=== PATIENT | male | born 1985 | race Two or more races ===

== ENCOUNTER 2020-01-23 17:11 | Inpatient (IN) | payer OTHER ==
[~2020-01-23] VITALS: Ht 172.7 cm; Wt 70.3 kg
--- NOTE | 2020-01-23 17:12 | NUR ---
Dr Higginbotham at the bedside for MSE.
[2020-01-23] MEDS ORDERED: FOLIC ACID/VITAMIN B COMP W-C TABLET PO STA (17:18)
[2020-01-23] MEDS ORDERED: ESCI10TA PO (17:27)
--- NOTE | 2020-01-23 17:27 | NUR ---
Pt out of ER for CT.
[2020-01-23] MEDS ORDERED: CHLORDIAZEPOXIDE HCL 25 MG CAPSULE PO ONE (17:30)
[2020-01-23] MEDS ORDERED: ONDANSETRON 4 MG/2 ML VIAL IV ONE ×2 (17:30→18:15)
[2020-01-23] MEDS ORDERED: THIAMINE HCL 100 MG TABLET PO ONE (17:30)
[2020-01-23] MEDS ORDERED: LORAZEPAM 2 MG/1 ML VIAL IV ONE ×2 (17:30→18:00)
[2020-01-23] MEDS ORDERED: IV NORMAL SALINE 1000 ML BAG IV ONE (17:30)
[2020-01-23 17:41] LABS: BASOPHILS # (AUTO) 0.1 K/uL (0.0-8.0); HEMOGLOBIN 16.6 g/dL (12.5-16.3); LYMPHOCYTES # (AUTO) 0.9 K/uL (20.0-40.0); LYMPHOCYTES % (AUTO) 13.2 % (20.5-51.5); MEAN CORPUSCULAR HEMOGLOBIN 32.7 uug (23.8-33.4); MEAN CORPUSCULAR HGB CONC 34 g/dL (32.5-36.3); MEAN CORPUSCULAR VOLUME 96.9 fL (73.0-96.2); MONOCYTES # (AUTO) 0.8 K/uL (2.0-10.0); MONOCYTES % (AUTO) 11.6 % (0.0-11.0); NEUTROPHILS % (AUTO) 74.2 % (38.5-71.5); PLATELET COUNT (AUTO) 195 K/uL (152-348); RED BLOOD CELL COUNT(AUTO) 5.06 MIL/uL (4.06-5.63); WHITE BLOOD COUNT (AUTO) 6.7 K/uL (3.6-10.2)
--- NOTE | 2020-01-23 17:43 | NUR ---
Pt back from CT, resting in bed.
[2020-01-23 17:45] LABS: CARBON DIOXIDE 21 mmol/L (21-32); CHLORIDE 92 mmol/L (98-107); CREATININE 1.3 mg/dL (0.6-1.3); GLUCOSE 229 mg/dL (74-106); UREA NITROGEN, BLOOD 5 mg/dL (7-18)
[2020-01-23] MEDS ORDERED: CEFTRIAXONE 2 G in IV DEXTROSE 5% 100 ML IV ONE (17:45)
[2020-01-23] MEDS ORDERED: PANTOPRAZOLE SODIUM IV 80 MG in IV DEXTROSE 5% 100 ML IV ONE (17:45)
[2020-01-23 17:46] LABS: ETHANOL 26 MG/DL (0-0)
[2020-01-23] MEDS ORDERED: LORAZEPAM 2 MG/1 ML VIAL ONE (17:46)
[2020-01-23] MEDS ORDERED: ONDANSETRON 4 MG/2 ML VIAL ONE (17:46)
[2020-01-23] MEDS ORDERED: CHLORDIAZEPOXIDE HCL 25 MG CAPSULE ONE (17:47)
[2020-01-23] MEDS ORDERED: THIAMINE HCL 100 MG TABLET ONE (17:48)
[2020-01-23 17:50] LABS: POTASSIUM 2.7 mmol/L (3.5-5.1)
[2020-01-23 17:53] LABS: ALANINE AMINOTRANSFERASE 331 U/L (16-63); ALKALINE PHOSPHATASE 141 U/L (50-136); ASPARTATE AMINOTRANSFERASE 398 U/L (15-37); BILIRUBIN,DIRECT 0.5 mg/dL (0.0-0.2); CREATINE KINASE, TOTAL 256 U/L (39-308); TOTAL PROTEIN, SERUM 8.8 g/dL (6.4-8.2)
[2020-01-23 17:54] LABS: ACETAMINOPHEN < 2.0 ug/mL (10-30)
[2020-01-23 17:56] LABS: LACTATE DEHYDROGENASE 424 U/L (85-227); LIPASE 3358 U/L (73-393)
[2020-01-23] MEDS ORDERED: CEFTRIAXONE 1 G VIAL ONE (18:00)
[2020-01-23] MEDS ORDERED: POTASSIUM CHLORIDE 20 MEQ TAB.PRT.SR PO ONE (18:00)
[2020-01-23] MEDS ORDERED: MAGNESIUM SULFATE/D5W 100 ML IV SCH (18:00)
[2020-01-23] MEDS ORDERED: POTASSIUM CHLORIDE 20 MEQ TAB.PRT.SR ONE (18:08)
[2020-01-23] MEDS ORDERED: MAGNESIUM SULFATE/D5W 100 ML ONE (18:08)
[2020-01-23] MEDS ORDERED: MORPHINE SULFATE 4 MG/1 ML DISP.SYRIN IV ONE (18:15)
--- NOTE | 2020-01-23 18:39 | NUR ---
ER spoke to admitting MD, DR Ortiz, for TELE admit.
--- NOTE | 2020-01-23 19:05 | NUR ---
ASSUMED CARE OF PATIENT FROIM DAY SHIFT SHERINE RICE.
[2020-01-23] MEDS ORDERED: ONDANSETRON 4 MG/2 ML VIAL IV PRN (20:00)
[2020-01-23] MEDS ORDERED: ACETAMINOPHEN 650 MG SUPP.RECT RC PRN (20:00)
[2020-01-23] MEDS ORDERED: LORAZEPAM 2 MG/1 ML VIAL IV PRN (20:00)
[2020-01-23] MEDS ORDERED: MORPHINE SULFATE 2 MG/1 ML DISP.SYRIN IV PRN (20:00)
--- NOTE | 2020-01-23 20:48 | NUR ---
Pt. admitted to Telemetry, under care of Dr. Ortiz. Belongs List completed. Report given to trust accounts supervisorSHERINE Lozada.
--- NOTE | 2020-01-23 20:55 | NUR ---
patient received. a/o x3. no signs of acute distress. v/s stable. cindy HUMMEL sitter at bedside for safety. will continue to monitor. Addendum: 01/24/20 at 0013 by EUSEBIA SANCHES RN a/o x2.
[2020-01-23 20:57] VITALS: BP 135/94
[2020-01-23] MEDS: THIAMINE HCL INJ 100 MG in IV DEXTROSE 5% 50 ML IV SCH (21:04)
[2020-01-23] MEDS: POTASSIUM CHLORIDE 20 MEQ in IV D5 1/2 NS 1000 ML 1,000 ML IV PRN (21:23)
[2020-01-23] MEDS: FOLIC ACID 1 MG in IV DEXTROSE 5% 50 ML IV SCH (21:41)
[2020-01-24 00:04] VITALS: BP 138/96
--- NOTE | 2020-01-24 04:26 | NUR ---
patient woke from sleep. resting comfortably and watching TV. spoke with patient he is now a/o x3. no s/s of acute distress. v/s stable. No SI/HI at this time. no SOB. Sinus Tach on tele monitor. IV intact and patent. NPO status remain. will continue to monitor.
[2020-01-24 05:51] LABS: BASOPHILS % (AUTO) 0.4 % (0.0-2.0); EOSINOPHILS % (AUTO) 0.1 % (0.0-7.0); LYMPHOCYTES # (AUTO) 0.3 K/uL (20.0-40.0); LYMPHOCYTES % (AUTO) 4.9 % (20.5-51.5); MEAN CORPUSCULAR HGB CONC 34 g/dL (32.5-36.3); MEAN CORPUSCULAR VOLUME 95.9 fL (73.0-96.2); MONOCYTES # (AUTO) 0.5 K/uL (2.0-10.0); MONOCYTES % (AUTO) 8.9 % (0.0-11.0); NEUTROPHILS # (AUTO) 5.2 K/uL (1.8-8.9); NEUTROPHILS % (AUTO) 85.7 % (38.5-71.5); RED BLOOD CELL COUNT(AUTO) 4.31 MIL/uL (4.06-5.63); WHITE BLOOD COUNT (AUTO) 6.1 K/uL (3.6-10.2)
[2020-01-24 06:14] LABS: POTASSIUM 3.2 mmol/L (3.5-5.1)
[2020-01-24] MEDS: POTASSIUM CHLORIDE 20 MEQ in IV D5 1/2 NS 1000 ML 1,000 ML IV PRN ×2 (06:16→17:28)
[2020-01-24 06:45] LABS: MAGNESIUM 2.2 mg/dL (1.8-2.4); PHOSPHOROUS 3.8 mg/dL (2.5-4.9)
[2020-01-24 06:50] LABS: HEMATOCRIT 41.3 % (36.7-47.1); HEMOGLOBIN 14.2 g/dL (12.5-16.3)
[2020-01-24 06:51] LABS: PLATELET COUNT (AUTO) 131 K/uL (152-348)
--- NOTE | 2020-01-24 07:30 | NUR ---
Received pt in bed asleep but arousable to name and touch. Pt lethargic but able to answer questions properly and obey commands. On RA with no complaints of SOB and distress at this time. Pt NPO except meds, verbalized understanding. IV on right AC 18g infusing D5 1/2NS 20 mEq LCl @ 100cc. Bed locked in lowest position with siderails 2x up. Cellphone and call light within reach. Will monitor for signs of ETOH withdrawal.
[2020-01-24] MEDS: PANTOPRAZOLE SODIUM 40 MG VIAL IV SCH (09:46)
[2020-01-24] MEDS: MULTIVITAMINS,THERAPEUTIC TABLET PO SCH (11:57)
[2020-01-24] MEDS: CHLORDIAZEPOXIDE HCL 25 MG CAPSULE PO SCH ×2 (11:58→16:43)
--- NOTE | 2020-01-24 12:04 | NUR ---
Pt now awake and able to answer questions. No distress or SOB noted. No other complaints. Able to take meds whole with sips of water. Call light and cellphone within reach. Will continue to monitor.
[2020-01-24 12:23] VITALS: BP 126/88
[2020-01-24 15:35] VITALS: BP 109/73
--- NOTE | 2020-01-24 17:18 | NUR ---
Pt had a BM. Per pt stool was liquid with dark color but no abdominal pain. Pt walked to bathroom with walker and standby assistance.
--- NOTE | 2020-01-24 17:52 | NUR ---
Gave pt pudding and a few thickened orange juice to cover for low BS. Retook BS- 93.
[2020-01-24] MEDS: FOLIC ACID 1 MG in IV DEXTROSE 5% 50 ML IV SCH (20:17)
[2020-01-24 20:44] VITALS: BP 131/93
[2020-01-24] MEDS: THIAMINE HCL INJ 100 MG in IV DEXTROSE 5% 50 ML IV SCH (21:14)
[2020-01-24] MEDS: ATORVASTATIN 10 MG TABLET PO SCH (21:14)
--- NOTE | 2020-01-24 23:33 | NUR ---
awake upon initial rounds. AAOx4 OOB to the BR with supervision. BM noted this shift. Voiding well in the urinal. IVF's infusing well via right arm heplock. On front desk monitor, patient sinus rhythm NPO maintained except meds. Fall precautions maintained. Siderails up for safety.call allen within reach.
[2020-01-25 00:20] VITALS: BP 116/75
[2020-01-25 04:48] VITALS: BP 119/79
[2020-01-25] MEDS: POTASSIUM CHLORIDE 20 MEQ in IV D5 1/2 NS 1000 ML 1,000 ML IV PRN ×2 (05:02→16:29)
--- NOTE | 2020-01-25 06:34 | NUR ---
End of shift note: slept well most of the shift. aaox4 no acute distress noted. IVF's infusing well. Voiding well. No complaints presented during shift.VSS.
[2020-01-25 06:53] LABS: BASOPHILS % (AUTO) 0.7 % (0.0-2.0); EOSINOPHILS # (AUTO) 0.1 K/uL (0.0-0.7); EOSINOPHILS % (AUTO) 1.2 % (0.0-7.0); HEMATOCRIT 40.9 % (36.7-47.1); HEMOGLOBIN 14.3 g/dL (12.5-16.3); LYMPHOCYTES # (AUTO) 0.8 K/uL (20.0-40.0); LYMPHOCYTES % (AUTO) 14.5 % (20.5-51.5); MEAN CORPUSCULAR HGB CONC 35 g/dL (32.5-36.3); MEAN CORPUSCULAR VOLUME 97.3 fL (73.0-96.2); MONOCYTES # (AUTO) 0.6 K/uL (2.0-10.0); MONOCYTES % (AUTO) 10.5 % (0.0-11.0); NEUTROPHILS # (AUTO) 4.1 K/uL (1.8-8.9); NEUTROPHILS % (AUTO) 73.1 % (38.5-71.5); PLATELET COUNT (AUTO) 146 K/uL (152-348); RED BLOOD CELL COUNT(AUTO) 4.21 MIL/uL (4.06-5.63); WHITE BLOOD COUNT (AUTO) 5.6 K/uL (3.6-10.2)
--- NOTE | 2020-01-25 07:30 | NUR ---
received on bed resting well. denies discomfort. awake alert oriented. no distress noted
[2020-01-25 08:16] LABS: CREATININE 0.8 mg/dL (0.6-1.3); MAGNESIUM 2.1 mg/dL (1.8-2.4); PHOSPHOROUS 3.4 mg/dL (2.5-4.9); POTASSIUM 3.8 mmol/L (3.5-5.1)
[2020-01-25] MEDS: PANTOPRAZOLE SODIUM 40 MG VIAL IV SCH (09:05)
[2020-01-25] MEDS: MULTIVITAMINS,THERAPEUTIC TABLET PO SCH (09:05)
[2020-01-25] MEDS: CHLORDIAZEPOXIDE HCL 25 MG CAPSULE PO SCH ×2 (09:05→16:26)
[2020-01-25] MEDS: ESCITALOPRAM OXALATE 10 MG TABLET PO SCH (09:06)
--- NOTE | 2020-01-25 09:30 | NUR ---
meds given , tolerated well. aware npo except meds, verbalized understanding. aware to call nurse for brp , safety, agreed. had bm today.
[2020-01-25 11:32] VITALS: BP 124/84
--- NOTE | 2020-01-25 14:30 | NUR ---
bm x 2 as of now. comfortable, calm. npo maintained
[2020-01-25 15:33] VITALS: BP 117/70
--- NOTE | 2020-01-25 19:14 | NUR ---
x 3 bms, no dt noted. npo maintained.
[2020-01-25] MEDS ORDERED: FOLIC ACID 1 MG TABLET PO SCH (20:00)
[2020-01-25] MEDS ORDERED: THIAMINE HCL 100 MG TABLET PO SCH (20:00)
[2020-01-25 20:51] VITALS: BP 114/82
[2020-01-25] MEDS: ATORVASTATIN 10 MG TABLET PO SCH (20:55)
[2020-01-26 00:23] VITALS: BP 125/89
[2020-01-26] MEDS: POTASSIUM CHLORIDE 20 MEQ in IV D5 1/2 NS 1000 ML 1,000 ML IV PRN (03:24)
[2020-01-26 04:55] VITALS: BP 116/78
[2020-01-26 06:08] LABS: BASOPHILS % (AUTO) 1.1 % (0.0-2.0); EOSINOPHILS # (AUTO) 0.1 K/uL (0.0-0.7); EOSINOPHILS % (AUTO) 1.9 % (0.0-7.0); HEMATOCRIT 41.7 % (36.7-47.1); HEMOGLOBIN 14.4 g/dL (12.5-16.3); LYMPHOCYTES # (AUTO) 0.7 K/uL (20.0-40.0); LYMPHOCYTES % (AUTO) 20.5 % (20.5-51.5); MEAN CORPUSCULAR HEMOGLOBIN 32.8 uug (23.8-33.4); MEAN CORPUSCULAR HGB CONC 35 g/dL (32.5-36.3); MEAN CORPUSCULAR VOLUME 95.3 fL (73.0-96.2); MONOCYTES # (AUTO) 0.5 K/uL (2.0-10.0); MONOCYTES % (AUTO) 13.8 % (0.0-11.0); NEUTROPHILS # (AUTO) 2.2 K/uL (1.8-8.9); NEUTROPHILS % (AUTO) 62.7 % (38.5-71.5); PLATELET COUNT (AUTO) 152 K/uL (152-348); RED BLOOD CELL COUNT(AUTO) 4.38 MIL/uL (4.06-5.63); WHITE BLOOD COUNT (AUTO) 3.5 K/uL (3.6-10.2)
[2020-01-26 06:40] LABS: CREATININE 0.9 mg/dL (0.6-1.3); PHOSPHOROUS 3.8 mg/dL (2.5-4.9); POTASSIUM 3.4 mmol/L (3.5-5.1)
[2020-01-26] MEDS ORDERED: PANTOPRAZOLE SODIUM 40 MG TABLET.DR PO SCH (07:00)
[2020-01-26] MEDS ORDERED: POTASSIUM CHLORIDE 20 MEQ TAB.PRT.SR PO ONE (07:30)
--- NOTE | 2020-01-26 08:00 | NUR ---
Started pt on full liquid diet per hospitalist Meena's PLUG SHAPER HAND orders. Pt is in no acute distress. IV on right hand intact. IVF infusing as ordered. will monitor patient if tolerating full liquid. Pt ambulates to bathroom with good balance.
[2020-01-26] MEDS ORDERED: THIAMINE HCL 100 MG TABLET PO SCH (09:00)
[2020-01-26] MEDS: CHLORDIAZEPOXIDE HCL 25 MG CAPSULE PO SCH (09:03)
[2020-01-26] MEDS: ESCITALOPRAM OXALATE 10 MG TABLET PO SCH (09:03)
[2020-01-26] MEDS: MULTIVITAMINS,THERAPEUTIC TABLET PO SCH (09:03)
[2020-01-26] MEDS ORDERED: THIA100T13 PO (10:20)
[2020-01-26] MEDS ORDERED: LORA-259 PO (10:20)
[2020-01-26] MEDS ORDERED: Folic Acid PO (10:20)
--- NOTE | 2020-01-26 10:30 | NUR ---
Pt tolerated full liquid for breakfast notified Meena BEJARANO. Pt is to be discharge.
--- NOTE | 2020-01-26 11:30 | NUR ---
RX for ativan, folic, and thiamin given to pt. Discharge instructions given to patient to follow up with primary doctor within 1 week and to start with soft foods then advance as tolerated to regular food if no nausea and no vomiting. Pt verbalized understanding. Pt is in no acute distress. Ambulatory with good balance. IV and ID taken out per protocol. Belongings given to patient and signed form.
== END 2020-01-26 11:30 | disposition home or self-care (01) | DRG 775 ==
LOC: ER 17:15 → TELE3 20:26
PROVIDERS: ADMIT Nurse Practitioner Acute Care; ATTEND Nurse Practitioner Acute Care
DX: F10.239 Alcohol dependence with withdrawal, unspecified (principal); G92 Toxic encephalopathy; K85.20 Alcohol induced acute pancreatitis without necrosis or infection; K76.0 Fatty (change of) liver, not elsewhere classified; F41.9 Anxiety disorder, unspecified; E87.6 Hypokalemia; E78.5 Hyperlipidemia, unspecified; Y90.1 Blood alcohol level of 20-39 mg/100 ml; R74.0 Nonspecific elevation of levels of transaminase and lactic acid dehydrogenase [LDH]; R73.9 Hyperglycemia, unspecified; K76.1 Chronic passive congestion of liver; R40.2412 Glasgow coma scale score 13-15, at arrival to emergency department
CPT/HCPCS: 36415; 70030-TC; 70450; 71045; 76705; 80329; 83615; 83690; 83735; 84100; 85025; 93005; A4663; C9113; G0378; G0480; G0480-TC; J0696; J2060; J2270; J2405; J3411; J3475; J3480; J3490; J7030; J7040; J7050; J7060

== ENCOUNTER 2020-08-22 19:15 | Emergency (ER) | payer OTHER ==
[~2020-08-22] VITALS: Ht 172.7 cm; Wt 72.6 kg
[~2020-08-22 19:15] MED LIST: ESCI10TA PO; Folic Acid PO; LORA-259 PO; THIA100T13 PO
[2020-08-22] MEDS ORDERED: ESCI5TAB PO (19:31)
--- NOTE | 2020-08-22 19:40 | NUR ---
Dr Oneil at bedside for MSE.
[2020-08-22] MEDS ORDERED: ONDANSETRON 4 MG/2 ML VIAL IV ONE (19:45)
[2020-08-22] MEDS ORDERED: IV NORMAL SALINE 1000 ML BAG IV ONE (19:45)
[2020-08-22] MEDS ORDERED: ONDANSETRON 4 MG/2 ML VIAL ONE (19:52)
[2020-08-22 20:20] LABS: BASOPHILS # (AUTO) 0.1 K/uL (0.0-8.0); BASOPHILS % (AUTO) 0.7 % (0.0-2.0); EOSINOPHILS % (AUTO) 0.1 % (0.0-7.0); HEMATOCRIT 48.3 % (36.7-47.1); HEMOGLOBIN 16.4 g/dL (12.5-16.3); LYMPHOCYTES # (AUTO) 2.1 K/uL (20.0-40.0); LYMPHOCYTES % (AUTO) 30.3 % (20.5-51.5); MEAN CORPUSCULAR HEMOGLOBIN 30.7 uug (23.8-33.4); MEAN CORPUSCULAR HGB CONC 34 g/dL (32.5-36.3); MEAN CORPUSCULAR VOLUME 90.2 fL (73.0-96.2); MONOCYTES # (AUTO) 0.4 K/uL (2.0-10.0); MONOCYTES % (AUTO) 5.3 % (0.0-11.0); NEUTROPHILS # (AUTO) 4.4 K/uL (1.8-8.9); NEUTROPHILS % (AUTO) 63.6 % (38.5-71.5); PLATELET COUNT (AUTO) 239 K/uL (152-348); RED BLOOD CELL COUNT(AUTO) 5.36 MIL/uL (4.06-5.63); WHITE BLOOD COUNT (AUTO) 6.9 K/uL (3.6-10.2)
[2020-08-22 20:33] LABS: BILIRUBIN,DIRECT 0.2 mg/dL (0.0-0.2); BILIRUBIN,TOTAL 0.7 mg/dL (0.2-1.0); CREATININE 0.7 mg/dL (0.6-1.3); POTASSIUM 3.2 mmol/L (3.5-5.1); TOTAL PROTEIN, SERUM 8.3 g/dL (6.4-8.2)
[2020-08-22] MEDS ORDERED: POTASSIUM BICARBONATE/CIT AC 25 MEQ TABLET.EFF PO ONE (21:00)
[2020-08-22] MEDS ORDERED: POTASSIUM BICARBONATE/CIT AC 25 MEQ TABLET.EFF ONE (21:17)
[2020-08-22 21:53] VITALS: BP 122/82
--- NOTE | 2020-08-22 21:54 | NUR ---
Patient has been cleared for DC by . Dr Oneil spoke with patient/and significant other Maisha regarding plan of care when DC. IV removed. Catheter intact and site benign. Pressure and 4x4 gauze applied to site. No bleeding noted. RN reinforced written and verbal after care instructions and prescription. Patient verbalizes understanding of instructions. Stressed follow up with PCP or return to ER for worsening s/s. Pt is waiting for his ride to pick him up at this time.
--- NOTE | 2020-08-22 22:01 | NUR ---
Ambulated out of ED in steady gait, family member picked patient up.
== END 2020-08-22 22:02 | disposition home or self-care (01) ==
LOC: ER 19:15
DX: F10.10 Alcohol abuse, uncomplicated (principal); E86.0 Dehydration; R11.10 Vomiting, unspecified; R19.7 Diarrhea, unspecified; R00.0 Tachycardia, unspecified; F32.9 Major depressive disorder, single episode, unspecified; Z79.899 Other long term (current) drug therapy
CPT/HCPCS: 36415; 80048; 80076; 83735; 85025; 93005; 96361; 96374; 99284; J2405; A4663; J7030

== ENCOUNTER 2020-10-02 19:43 | Inpatient (IN) | payer OTHER ==
[~2020-10-02] VITALS: Ht 172.7 cm; Wt 74.0 kg
[2020-10-02] MEDS: THIAMINE HCL INJ 100 MG in IV DEXTROSE 5% 50 ML IV SCH (01:42)
[~2020-10-02 19:43] MED LIST changes: -ESCI10TA PO; +ESCI5TAB PO; -Folic Acid PO; -LORA-259 PO; -THIA100T13 PO
[2020-10-02] MEDS ORDERED: IV NORMAL SALINE 1000 ML BAG IV ONE (20:15)
[2020-10-02] MEDS ORDERED: ONDANSETRON ODT 4 MG TAB.RAPDIS ONE (20:37)
[2020-10-02] MEDS ORDERED: MORPHINE SULFATE 2 MG/1 ML DISP.SYRIN IV ONE (20:45)
[2020-10-02] MEDS ORDERED: ONDANSETRON 4 MG/2 ML VIAL IV ONE (20:45)
[2020-10-02 20:54] LABS: BASOPHILS # (AUTO) 0.1 K/uL (0.0-8.0); BASOPHILS % (AUTO) 0.2 % (0.0-2.0); EOSINOPHILS % (AUTO) 0.2 % (0.0-7.0); HEMATOCRIT 50.9 % (36.7-47.1); HEMOGLOBIN 16.7 g/dL (12.5-16.3); LYMPHOCYTES # (AUTO) 2.4 K/uL (20.0-40.0); LYMPHOCYTES % (AUTO) 11.5 % (20.5-51.5); MEAN CORPUSCULAR HEMOGLOBIN 31.1 uug (23.8-33.4); MEAN CORPUSCULAR HGB CONC 33 g/dL (32.5-36.3); MEAN CORPUSCULAR VOLUME 94.4 fL (73.0-96.2); MONOCYTES # (AUTO) 1.4 K/uL (2.0-10.0); NEUTROPHILS # (AUTO) 16.6 K/uL (1.8-8.9); NEUTROPHILS % (AUTO) 81.1 % (38.5-71.5); PLATELET COUNT (AUTO) 121 K/uL (152-348); RED BLOOD CELL COUNT(AUTO) 5.38 MIL/uL (4.06-5.63); WHITE BLOOD COUNT (AUTO) 20.5 K/uL (3.6-10.2)
[2020-10-02] MEDS ORDERED: ONDANSETRON ODT 4 MG TAB.RAPDIS SL ONE (21:00)
[2020-10-02 21:06] LABS: ALANINE AMINOTRANSFERASE 162 U/L (16-63); ALKALINE PHOSPHATASE 85 U/L (50-136); ASPARTATE AMINOTRANSFERASE 180 U/L (15-37); BILIRUBIN,DIRECT 0.2 mg/dL (0.0-0.2); BILIRUBIN,TOTAL 0.7 mg/dL (0.2-1.0); CARBON DIOXIDE 20 mmol/L (21-32); CHLORIDE 99 mmol/L (98-107); CREATININE 0.9 mg/dL (0.6-1.3); GLUCOSE 184 mg/dL (74-106); TOTAL PROTEIN, SERUM 8.2 g/dL (6.4-8.2); UREA NITROGEN, BLOOD 5 mg/dL (7-18)
[2020-10-02 21:09] LABS: POTASSIUM 2.8 mmol/L (3.5-5.1)
[2020-10-02] MEDS ORDERED: POTASSIUM CHLORIDE 20 MEQ TAB.PRT.SR PO ONE (21:30)
[2020-10-02 21:37] LABS: LIPASE > 6000 U/L (73-393)
[2020-10-02] MEDS ORDERED: FENTANYL CITRATE 100 MCG/2 ML AMPUL IV ONE (21:45)
[2020-10-02] MEDS: MAGNESIUM SULFATE/D5W 100 ML IV SCH ×2 (21:49→22:23)
[2020-10-02] MEDS ORDERED: MAGNESIUM SULFATE 1 GM/2 ML VIAL ONE (21:49)
[2020-10-02] MEDS ORDERED: FENTANYL CITRATE 100 MCG/2 ML AMPUL ONE (21:57)
[2020-10-02] MEDS ORDERED: IV LACTATED RINGERS SOLUTION 1,000 ML IV ONE (22:00)
[2020-10-02] MEDS: POTASSIUM CHLORIDE 50 ML IV SCH ×3 (22:00→23:00)
--- NOTE | 2020-10-02 22:45 | NUR ---
Patient resting in bed. Orders received. Sinus Tachy on monitor. Will monitor and assess.
[2020-10-02] MEDS ORDERED: KETAMINE HCL 500 MG/10 ML INJ IV ONE (23:00)
[2020-10-02] MEDS ORDERED: CHLORDIAZEPOXIDE HCL 25 MG CAPSULE PO ONE (23:00)
[2020-10-02 23:02] LABS: *BILIRUBIN,URIN NEGATIVE (NEGATIVE); *CLARITY,URINE CLEAR (CLEAR); *COLOR,URINE YELLOW (YELLOW); *KETONES,URINE NEGATIVE (NEGATIVE); *UROBILINOGEN,URINE 0.2 E.U./dl (NORMAL); LEUKOCYTE ESTERASE ,URINE NEGATIVE (NEGATIVE); NITRITE, URINE NEGATIVE (NEGATIVE); UGLUCOSE NEGATIVE (NEGATIVE)
[2020-10-02 23:10] LABS: *BLOOD, URINE TRACE LYSED (NEGATIVE)
[2020-10-02] MEDS ORDERED: MAGNESIUM HYDROXIDE 30 ML LIQUID UDC PO PRN (23:30)
[2020-10-02] MEDS ORDERED: Z GUARD REMEDY PASTE 57 GM TUBE TOP PRN (23:30)
[2020-10-02] MEDS ORDERED: KETOROLAC TROMETHAMINE 30 MG INJ ONE (23:50)
[2020-10-03 00:23] LABS: BACTERIA,URINE NONE SEEN /HPF (NONE SEEN); CALCIUM OXALATE CRYSTALS,UR MANY /HPF (NONE SEEN); RBC,URINE 0-3 /HPF (0-3); SQUAMOUS EPITHELIAL CELL,UR FEW /HPF (NONE SEEN); URINE AMORPHOUS PHOSPHATES FEW /HPF; WBC,URINE 0-3 /HPF (0-3)
[2020-10-03] MEDS ORDERED: ONDANSETRON 4 MG/2 ML VIAL ONE (01:41)
[2020-10-03] MEDS: HYDROCODONE/APAP 5-325MG TABLET PO PRN ×2 (01:41→05:54)
[2020-10-03] MEDS ORDERED: HYDROCODONE/APAP 5-325MG TABLET ONE ×2 (01:41→05:59)
[2020-10-03] MEDS: ONDANSETRON 4 MG/2 ML VIAL IV PRN (01:41)
[2020-10-03] MEDS: IV NS 1000 ML 1,000 ML IV PRN ×2 (01:42→04:45)
[2020-10-03] MEDS ORDERED: THIAMINE HCL 200 MG/2 ML VIAL ONE ×2 (01:42→07:57)
[2020-10-03] MEDS ORDERED: LORAZEPAM 2 MG/1 ML VIAL ONE ×4 (03:07→09:18)
[2020-10-03] MEDS: LORAZEPAM 2 MG/1 ML VIAL IV PRN (03:07)
--- NOTE | 2020-10-03 03:08 | NUR ---
Patient resting in bed. Agitated, anxious, diaphoretic -- possible effects of withdrawal -- PRN Ativan given. No temp. Will monitor and assess.
[2020-10-03] MEDS ORDERED: LORAZEPAM 2 MG/1 ML VIAL IV ONE ×4 (06:15→09:00)
--- NOTE | 2020-10-03 07:37 | NUR ---
Note klarissaone in ED - 10/03/20 at 1907 by ADAMS (Pandemic disaster charting with no appropriate staffing ratio observed in ER) :Content Administrator assumes care, patient is on & off lethargic, tachycardic fnaa=930's-160's/min, no tremors or sezures seen, moving all over the [facility] skin warm & dry, ER doctor is aware of vital signs, pending inpatient non-COVID bed & nurse@ this time.
--- NOTE | 2020-10-03 07:37 | NUR ---
(Pandemic disaster charting with no appropriate staffing ratio observed in ER) Fuel Agent assumes care: patient is lethargic, opens eyes with soft touch, minimally verbal, moves all extremities, Dr Olvera (ER doctor) is aware of patient current vital signs with orders to give IV Ativan, pending non-COVID inpatient nurse & bed@this time.
[2020-10-03] MEDS ORDERED: LORAZEPAM 2 MG/1 ML VIAL IV PRN (07:45)
[2020-10-03 10:28] LABS: BASOPHILS % (AUTO) 0.1 % (0.0-2.0); HEMATOCRIT 51.4 % (36.7-47.1); HEMOGLOBIN 16.7 g/dL (12.5-16.3); LYMPHOCYTES # (AUTO) 0.3 K/uL (20.0-40.0); LYMPHOCYTES % (AUTO) 2.5 % (20.5-51.5); MEAN CORPUSCULAR HEMOGLOBIN 31.7 uug (23.8-33.4); MEAN CORPUSCULAR HGB CONC 33 g/dL (32.5-36.3); MEAN CORPUSCULAR VOLUME 97.4 fL (73.0-96.2); NEUTROPHILS # (AUTO) 11.5 K/uL (1.8-8.9); NEUTROPHILS % (AUTO) 89.4 % (38.5-71.5); PLATELET COUNT (AUTO) 120 K/uL (152-348); RED BLOOD CELL COUNT(AUTO) 5.28 MIL/uL (4.06-5.63); WHITE BLOOD COUNT (AUTO) 12.8 K/uL (3.6-10.2)
[2020-10-03 10:36] LABS: MAGNESIUM 2.3 mg/dL (1.8-2.4); POTASSIUM 5.7 mmol/L (3.5-5.1)
--- NOTE | 2020-10-03 11:04 | NUR ---
Dr Blankenship is here & is aware of patient's vitals signs.
[2020-10-03] MEDS ORDERED: IV NS 1000 ML 1,000 ML IV SCH (11:30)
[2020-10-03] MEDS: FOLIC ACID 1 MG in IV DEXTROSE 5% 50 ML IV SCH (11:30)
[2020-10-03] MEDS ORDERED: PHARMACY TO ADD 1 AMP OF MVI DAILY TO IVF ONE BAG XX PRN (11:30)
[2020-10-03] MEDS: IV NS 1000 ML 1,000 ML IV SCH ×2 (11:31→21:45)
[2020-10-03] MEDS ORDERED: MVI ADULT 10 ML VIAL=1 AMP 10 ML in IV NS 1000 ML 1,000 ML IV SCH (11:45)
[2020-10-03] MEDS ORDERED: FOLIC ACID 5 MG/ML VIAL IV ONE (12:16)
--- NOTE | 2020-10-03 19:10 | NUR ---
No tremors or seizures seen since this morning, still tachycardic, still waiting for inpatient non-COVID bed & nurse@this time.
--- NOTE | 2020-10-03 19:30 | NUR ---
Assumed care for patient at this time, with full report received from Christine BASURTO. Pt is resting with no signs of distress. Repositioned patient in bed and vital signs obtained, documented. Pt remains tachycardic at 142. Previous records show same reading. Paged hospitalist to report findings.
--- NOTE | 2020-10-03 20:37 | NUR ---
[facility] hospitalist is aware of Sinus Tach at 140- 150's at this time. Pt is aymptomatic, and will receive Ativan PRN for withdrawals. Will notify hospitalist for any changes in rhythm.
[2020-10-03] MEDS: THIAMINE HCL INJ 100 MG in IV DEXTROSE 5% 50 ML IV SCH (23:30)
[2020-10-04] MEDS ORDERED: PYRIDOXINE HCL 100 MG/1 ML VIAL ONE (02:42)
[2020-10-04] MEDS ORDERED: LORAZEPAM 2 MG/1 ML VIAL ONE ×4 (03:23→11:59)
[2020-10-04] MEDS: LORAZEPAM 2 MG/1 ML VIAL IV PRN ×4 (03:30→17:16)
--- NOTE | 2020-10-04 04:25 | NUR ---
Called [facility], to page Dr Light for patient's continued sinus tach at 140-150's. Ativan last given at 0330. No signs of improvement. Will call back.
[2020-10-04] MEDS ORDERED: LORAZEPAM 2 MG/1 ML VIAL IV ONE (06:30)
[2020-10-04] MEDS ORDERED: ONDANSETRON 4 MG/2 ML VIAL IV ONE (06:30)
--- NOTE | 2020-10-04 06:30 | NUR ---
Dr Glover on shift, pending orders from admitting still. Dr Glover with new orders as consult for patient. Will carryout. Dr Light notified as well.
[2020-10-04] MEDS ORDERED: ONDANSETRON 4 MG/2 ML VIAL ONE ×2 (06:38→08:31)
--- NOTE | 2020-10-04 07:00 | NUR ---
All new orders noted and carried out at this time, endorsed to Sepi AM shift RN to f/up on patient's condition. Left with pt stable.
[2020-10-04 07:34] LABS: ABG BASE EXCESS -14.9 mmol/L; ABG HCO3 9.3 mmol/L; ABG PCO2 19.8 mmHg (35.0-45.0); ABG PO2 83.2 mmHg (75.0-100.0); ABG SITE LEFT RADIAL; ABG TOTAL HEMOGLOBIN 13.9 G/dL (13.5-18.0); COHb 2.2 % (0.5-1.5); MetHb 1.1 % (0.0-1.5); VENT MODE Nasal Cannula
[2020-10-04] MEDS ORDERED: IV LACTATED RINGERS SOLUTION 1,000 ML BAG IV ONE (07:45)
[2020-10-04] MEDS: ONDANSETRON 4 MG/2 ML VIAL IV PRN (08:28)
[2020-10-04 09:02] LABS: BASOPHILS % (AUTO) 0.4 % (0.0-2.0); EOSINOPHILS # (AUTO) 0.1 K/uL (0.0-0.7); EOSINOPHILS % (AUTO) 1.3 % (0.0-7.0); HEMATOCRIT 41.8 % (36.7-47.1); HEMOGLOBIN 13.7 g/dL (12.5-16.3); LYMPHOCYTES # (AUTO) 0.5 K/uL (20.0-40.0); LYMPHOCYTES % (AUTO) 5.5 % (20.5-51.5); MEAN CORPUSCULAR HEMOGLOBIN 32.4 uug (23.8-33.4); MEAN CORPUSCULAR HGB CONC 33 g/dL (32.5-36.3); MEAN CORPUSCULAR VOLUME 98.9 fL (73.0-96.2); MONOCYTES # (AUTO) 1.1 K/uL (2.0-10.0); MONOCYTES % (AUTO) 11.3 % (0.0-11.0); NEUTROPHILS # (AUTO) 7.9 K/uL (1.8-8.9); NEUTROPHILS % (AUTO) 81.5 % (38.5-71.5); PLATELET COUNT (AUTO) 86 K/uL (152-348); RED BLOOD CELL COUNT(AUTO) 4.23 MIL/uL (4.06-5.63); WHITE BLOOD COUNT (AUTO) 9.7 K/uL (3.6-10.2)
[2020-10-04 09:12] LABS: CREATININE 5.8 mg/dL (0.6-1.3)
--- NOTE | 2020-10-04 09:49 | NUR ---
TALKED TO DR. NDIAYE, HE WILL COME AND SEE THE PT.
--- NOTE | 2020-10-04 11:00 | NUR ---
DR. NDIAYE AT BEDSIDE. Addendum: 10/04/20 at [address] NDIAYE AWARE OF THE HR, LACTIC ACID, AM LABS
--- NOTE | 2020-10-04 11:07 | NUR ---
EMMETT GARCIA NP, FROM DR. TRIPP OFFICE AT BEDSIDE.
[2020-10-04 11:13] LABS: BILIRUBIN,DIRECT 1.2 mg/dL (0.0-0.2); BILIRUBIN,TOTAL 3.3 mg/dL (0.2-1.0)
[2020-10-04] MEDS: FOLIC ACID 1 MG in IV DEXTROSE 5% 50 ML IV SCH (11:30)
[2020-10-04] MEDS ORDERED: DEXTROSE 25% 10 ML DISP.SYRIN IV ONE (11:45)
[2020-10-04] MEDS ORDERED: INSULIN REGULAR, HUMAN 300 UNIT/3 ML VIAL SQ ONE (11:45)
[2020-10-04] MEDS ORDERED: FUROSEMIDE 40 MG/4 ML VIAL IV ONE ×2 (11:45→20:00)
[2020-10-04] MEDS ORDERED: SODIUM POLYSTYRENE SULFONATE 15 G/60 ML LIQUID UDC PO ONE ×2 (12:00→20:00)
[2020-10-04] MEDS ORDERED: FUROSEMIDE 40 MG/4 ML VIAL ONE ×2 (12:15→20:40)
[2020-10-04] MEDS ORDERED: SODIUM POLYSTYRENE SULFONATE 15 G/60 ML LIQUID UDC ONE ×2 (12:15→20:41)
[2020-10-04] MEDS ORDERED: INSULIN REGULAR, HUMAN 300 UNIT/3 ML VIAL ONE (12:16)
--- NOTE | 2020-10-04 12:22 | NUR ---
CALLED DR. TRIPP TO VERIFY THE INSULIN AND D25 ORDER. DR TRIPP ORDERED INSULIN 10UNITS IV AND DEXTROSE 50%, ONE AMP IV.
[2020-10-04] MEDS ORDERED: DEXTROSE 50% 50 ML DISP.SYRIN ONE (12:27)
[2020-10-04] MEDS ORDERED: INSULIN REGULAR, HUMAN 300 UNIT/3 ML VIAL IV ONE (12:45)
[2020-10-04] MEDS ORDERED: DEXTROSE 50% 50 ML DISP.SYRIN IV ONE (12:45)
[2020-10-04] MEDS: IV NS 1000 ML 1,000 ML IV SCH (13:00)
[2020-10-04] MEDS ORDERED: FOLIC ACID 5 MG/ML VIAL IV ONE (14:02)
--- NOTE | 2020-10-04 15:24 | NUR ---
CALLED PT MOTHER AND LEFT A MESSAGE FOR CONSENT FOR DIALYSIS.
[2020-10-04] MEDS ORDERED: HEPARIN SODIUM,PORCINE 5,000 UNITS/ML VIAL ONE (15:38)
--- NOTE | 2020-10-04 15:43 | NUR ---
JOHN HUBBARD, PLACED JANUARY CATH IN THE RIGHT GROIN.
--- NOTE | 2020-10-04 18:30 | NUR ---
DR. GARCIA TALKED TO DR. NDIAYE REGARDING PT HR AND THE TIMING OF DIALYSIS. NO TIME FOR DIALYSIS AT THIS POINT.
[2020-10-04 18:31] LABS: CREATININE 6.6 mg/dL (0.6-1.3); POTASSIUM 5.7 mmol/L (3.5-5.1)
--- NOTE | 2020-10-04 19:17 | NUR ---
PT REMAIED TACHY CARDIC HR 150, THE WHOLE ER STAY, PT MOVED AND OCCASIONALLY MOAN, NON-COMPREHENSIBEL.
--- NOTE | 2020-10-04 19:30 | NUR ---
Patient is sinus tachycardic on the monitor, appears restless in bed, unable to answer my questions coherently. MD NDIAYE aware. Patient is pending dialysis treatment at this time.
[2020-10-04 20:07] LABS: BAND % (MANUAL) 20 % (0-10); LYMPHOCYTES % (MANUAL) 8 % (20-40); MONOCYTES % (MANUAL) 6 % (2-10); NEUTROPHILS % (MANUAL) 66 % (42-75)
[2020-10-04 20:09] LABS: ABG BASE EXCESS -11.9 mmol/L; ABG HCO3 13.2 mmol/L; ABG PCO2 27.8 mmHg (35.0-45.0); ABG PH 7.293 (7.350-7.450); ABG PO2 109.8 mmHg (75.0-100.0); ABG SITE RIGHT RADIAL; ABG TOTAL HEMOGLOBIN 11.9 G/dL (13.5-18.0); COHb 1.7 % (0.5-1.5); MetHb 1.8 % (0.0-1.5); O2Hb 94.5 % (94.0-97.0); VENT MODE Nasal Cannula
--- NOTE | 2020-10-04 20:30 | NUR ---
Unable to administer kayexalate PO to patient. Unable to tolerate oral medication.
--- NOTE | 2020-10-04 21:38 | NUR ---
Spoke with Dr. Santo Vargas, patient needs to be in a medsurg room in order for dialysis to be performed.
--- NOTE | 2020-10-04 22:15 | NUR ---
Pt. admitted to med-surg 2nd floor, under care of Margarita MCDONOUGH NP. Belongs List completed, report given to JOHN.
--- NOTE | 2020-10-04 23:00 | NUR ---
Received pt from ER. Pt came with neil, and 4 point restraints on due to pt trying to pull out his IV, neil, and his inguinal dialysis access point. Pt was lethargic, confused, non-responsive to commands. IV access on left forearm 20G. Upon admission removed ankle restraints. Pt placed on tele monitor with sinus tachy rhythm of 126. Will continue to monitor pt restraints and follow the plan of care.
[2020-10-04] MEDS: THIAMINE HCL INJ 100 MG in IV DEXTROSE 5% 50 ML IV SCH (23:30)
[2020-10-04 23:32] LABS: BASOPHILS % (AUTO) 0.3 % (0.0-2.0); EOSINOPHILS # (AUTO) 0.1 K/uL (0.0-0.7); EOSINOPHILS % (AUTO) 0.6 % (0.0-7.0); HEMATOCRIT 35.9 % (36.7-47.1); HEMOGLOBIN 11.9 g/dL (12.5-16.3); LYMPHOCYTES # (AUTO) 0.8 K/uL (20.0-40.0); LYMPHOCYTES % (AUTO) 8.2 % (20.5-51.5); MEAN CORPUSCULAR HEMOGLOBIN 32.9 uug (23.8-33.4); MEAN CORPUSCULAR HGB CONC 33 g/dL (32.5-36.3); MEAN CORPUSCULAR VOLUME 99.2 fL (73.0-96.2); MONOCYTES # (AUTO) 0.7 K/uL (2.0-10.0); MONOCYTES % (AUTO) 6.9 % (0.0-11.0); NEUTROPHILS # (AUTO) 8.2 K/uL (1.8-8.9); PLATELET COUNT (AUTO) 102 K/uL (152-348); RED BLOOD CELL COUNT(AUTO) 3.62 MIL/uL (4.06-5.63); WHITE BLOOD COUNT (AUTO) 9.7 K/uL (3.6-10.2)
[2020-10-04] MEDS ORDERED: THIAMINE HCL 200 MG/2 ML VIAL ONE (23:36)
[2020-10-04 23:45] LABS: ALANINE AMINOTRANSFERASE 2540 U/L (16-63); ALKALINE PHOSPHATASE 83 U/L (50-136); BILIRUBIN,TOTAL 4.9 mg/dL (0.2-1.0); CARBON DIOXIDE 18 mmol/L (21-32); CHLORIDE 107 mmol/L (98-107); CREATININE 6.9 mg/dL (0.6-1.3); TOTAL PROTEIN, SERUM 6.3 g/dL (6.4-8.2)
[2020-10-05] VITALS: BP 148/95
[2020-10-05 00:13] LABS: GLUCOSE 304 mg/dL (74-106); LIPASE > 6000 U/L (73-393)
[2020-10-05 00:14] LABS: ASPARTATE AMINOTRANSFERASE > 4000 U/L (15-37)
[2020-10-05 00:21] LABS: POTASSIUM 6.3 mmol/L (3.5-5.1); UREA NITROGEN, BLOOD 85 mg/dL (7-18)
[2020-10-05 04:00] VITALS: BP 151/95
[2020-10-05 07:58] LABS: BASOPHILS # (AUTO) 0.1 K/uL (0.0-8.0); BASOPHILS % (AUTO) 0.9 % (0.0-2.0); EOSINOPHILS # (AUTO) 0.1 K/uL (0.0-0.7); EOSINOPHILS % (AUTO) 0.6 % (0.0-7.0); HEMATOCRIT 32.2 % (36.7-47.1); HEMOGLOBIN 10.9 g/dL (12.5-16.3); LYMPHOCYTES # (AUTO) 0.9 K/uL (20.0-40.0); LYMPHOCYTES % (AUTO) 9.5 % (20.5-51.5); MEAN CORPUSCULAR HEMOGLOBIN 33.7 uug (23.8-33.4); MEAN CORPUSCULAR HGB CONC 34 g/dL (32.5-36.3); MEAN CORPUSCULAR VOLUME 99.3 fL (73.0-96.2); MONOCYTES # (AUTO) 0.6 K/uL (2.0-10.0); MONOCYTES % (AUTO) 6.2 % (0.0-11.0); NEUTROPHILS # (AUTO) 7.6 K/uL (1.8-8.9); NEUTROPHILS % (AUTO) 82.8 % (38.5-71.5); PLATELET COUNT (AUTO) 104 K/uL (152-348); RED BLOOD CELL COUNT(AUTO) 3.24 MIL/uL (4.06-5.63); WHITE BLOOD COUNT (AUTO) 9.2 K/uL (3.6-10.2)
[2020-10-05 08:00] LABS: CREATININE 7.4 mg/dL (0.6-1.3); POTASSIUM 5.6 mmol/L (3.5-5.1)
[2020-10-05] MEDS: SODIUM BICARBONATE 8.4% 100 MEQ in IV D5 1/2 NS 1000 ML 1,000 ML IV PRN ×2 (08:27→20:28)
[2020-10-05 11:35] VITALS: BP 151/86
[2020-10-05] MEDS: FOLIC ACID 1 MG in IV DEXTROSE 5% 50 ML IV SCH (12:03)
[2020-10-05 15:37] LABS: NEUTROPHILS % (MANUAL) 74 % (42-75)
[2020-10-05 15:38] LABS: BAND % (MANUAL) 6 % (0-10); LYMPHOCYTES % (MANUAL) 11 % (20-40); MONOCYTES % (MANUAL) 9 % (2-10)
[2020-10-05 15:55] VITALS: BP 130/72
--- NOTE | 2020-10-05 18:00 | NUR ---
still remains confused, vs stable, all needs attended and met, safety measures in place
--- NOTE | 2020-10-05 19:24 | NUR ---
Patient had dialysis,patient confused,has restrains on.Vitals stable.
[2020-10-05 19:39] VITALS: BP 138/90
--- NOTE | 2020-10-05 20:15 | NUR ---
Received patient in bed .Confused with soft restraints on bilateral hands.On O2 inhalation at 5 LPM via NC saturating at 94%.Diamond catheter in place draining well .RT inguinal dialysis catheter intact with dressing clean and dry.Iv access in Left Forearm 20 g patent and intact with Sodium bicarbonate D5 1/2 NS running at 100 ml/Hr.Tolerated well. Continue on NPO and on tele monitor.Continue safety measures.Will continue to monitor.
[2020-10-05] MEDS: THIAMINE HCL INJ 100 MG in IV DEXTROSE 5% 50 ML IV SCH (20:47)
[2020-10-06 00:12] VITALS: BP 149/89
[2020-10-06 04:38] VITALS: BP 145/97
[2020-10-06 07:43] LABS: BASOPHILS % (AUTO) 0.4 % (0.0-2.0); EOSINOPHILS % (AUTO) 0.2 % (0.0-7.0); LYMPHOCYTES % (AUTO) 12.1 % (20.5-51.5); MEAN CORPUSCULAR HEMOGLOBIN 33.8 uug (23.8-33.4); MEAN CORPUSCULAR HGB CONC 35 g/dL (32.5-36.3); MONOCYTES # (AUTO) 0.8 K/uL (2.0-10.0); MONOCYTES % (AUTO) 10.2 % (0.0-11.0); NEUTROPHILS # (AUTO) 6.3 K/uL (1.8-8.9); NEUTROPHILS % (AUTO) 77.1 % (38.5-71.5); PLATELET COUNT (AUTO) 77 K/uL (152-348); RED BLOOD CELL COUNT(AUTO) 2.96 MIL/uL (4.06-5.63); WHITE BLOOD COUNT (AUTO) 8.2 K/uL (3.6-10.2)
[2020-10-06 07:53] LABS: POTASSIUM 4.6 mmol/L (3.5-5.1)
[2020-10-06] MEDS ORDERED: DEXTROSE 50% 50 ML DISP.SYRIN IV PRN (08:00)
--- NOTE | 2020-10-06 08:00 | NUR ---
confused, incontinent of loose stool, washed and kept clean and dry, on 5l/nc sat at 95%, right fem dialysis cath intact with dsg, soft restraints on-pulls lines. BS (lab) 458- Dr Dillard made aware with orders, safety measures in place, no distress noted.
[2020-10-06 08:06] LABS: HEPATITIS B SURFACE AB Reactive (.); HEPATITIS B SURFACE AG Negative (Negative)
[2020-10-06 08:35] VITALS: BP 144/88
[2020-10-06] MEDS ORDERED: INSULIN GLARGINE,HUM 300 UNITS/3 ML CARTRIDGE SQ SCH (08:45)
[2020-10-06] MEDS ORDERED: INSULIN REGULAR, HUMAN 300 UNIT/3 ML VIAL SQ ONE (08:45)
[2020-10-06] MEDS: INSULIN GLARGINE,HUM 300 UNITS/3 ML CARTRIDGE SQ SCH (09:04)
[2020-10-06] MEDS: SODIUM BICARBONATE 8.4% 100 MEQ in IV D5 1/2 NS 1000 ML 1,000 ML IV PRN (09:05)
[2020-10-06] MEDS: FOLIC ACID 1 MG in IV DEXTROSE 5% 50 ML IV SCH (12:19)
[2020-10-06] MEDS: BLOOD SUGAR DIAGNOSTIC 1 EACH STRIP VI SCH ×3 (12:37→23:49)
[2020-10-06 12:38] VITALS: BP 135/88
[2020-10-06] MEDS: INSULIN REGULAR, HUMAN 300 UNIT/3 ML VIAL SQ PRN ×2 (12:39→23:49)
[2020-10-06 16:18] VITALS: BP 137/92
[2020-10-06 17:06] LABS: BAND % (MANUAL) 1 % (0-10); LYMPHOCYTES % (MANUAL) 20 % (20-40); MONOCYTES % (MANUAL) 8 % (2-10); NEUTROPHILS % (MANUAL) 71 % (42-75)
--- NOTE | 2020-10-06 18:51 | NUR ---
calm and resting, had BM's this shift, repositioned for comfort, no distress, needs attended and met.
--- NOTE | 2020-10-06 19:30 | NUR ---
Received patient lying in bed. Awake but confused and disoriented. Alert to self at times. No signs or symptoms of pain or SOB. On O2 at 5LPM via NC in place. O2 sat at 94%. Sinus tachy on tele at 110/min. Soft wrist restraint in place, circulation check. IV site on left FA intact and patent. IVF infusing. Needs anticipated to. Safety measure initiated. Continue to monitor.
--- NOTE | 2020-10-06 19:35 | NUR ---
Diamond catheter intact and draining via gravity. Will monitor for further LBM.
[2020-10-06 20:00] VITALS: BP 138/89
[2020-10-06] MEDS ORDERED: ACETAMINOPHEN 650 MG SUPP.RECT RC PRN (20:15)
[2020-10-06] MEDS: SODIUM BICARBONATE 8.4% 100 MEQ in IV D5 1/2 NS 1000 ML 1,000 ML IV SCH (20:41)
[2020-10-06] MEDS: THIAMINE HCL INJ 100 MG in IV DEXTROSE 5% 50 ML IV SCH (20:42)
--- NOTE | 2020-10-06 21:10 | NUR ---
Patient with temp of 100.4 orally. Cooling measure provided. Informed VOLTAGE REGULATOR ASSEMBLER Nishant and ordered Tylenol supp. 650mg per rectal q6 hrs PRN. Also informed of several stools during the day and ordered Stool for C. Diff. All order read back and verified. Will carry out orders.
[2020-10-07] VITALS: BP 132/83
[2020-10-07] MEDS: LORAZEPAM 2 MG/1 ML VIAL IV PRN (01:46)
[2020-10-07 04:00] VITALS: BP 121/74
[2020-10-07] MEDS: BLOOD SUGAR DIAGNOSTIC 1 EACH STRIP VI SCH ×4 (05:39→23:48)
[2020-10-07] MEDS: INSULIN REGULAR, HUMAN 300 UNIT/3 ML VIAL SQ PRN ×3 (05:41→17:59)
--- NOTE | 2020-10-07 06:25 | NUR ---
No significant event the whole shift. Remains NPO. O2 at 5LPM via NC in place. No SOB noted. PRN Lorazepam 1mg IV given x1 and effective for anxiety. Wrist restraint remains in place. IVF continue infusing. ST on tele at 115/min. Needs assessed and attended to. Safety measure maintained.
[2020-10-07 06:56] LABS: BASOPHILS # (AUTO) 0.1 K/uL (0.0-8.0); BASOPHILS % (AUTO) 0.7 % (0.0-2.0); EOSINOPHILS % (AUTO) 0.4 % (0.0-7.0); HEMATOCRIT 32.2 % (36.7-47.1); HEMOGLOBIN 11.1 g/dL (12.5-16.3); LYMPHOCYTES % (AUTO) 10.5 % (20.5-51.5); MEAN CORPUSCULAR HEMOGLOBIN 33.2 uug (23.8-33.4); MEAN CORPUSCULAR HGB CONC 34 g/dL (32.5-36.3); MEAN CORPUSCULAR VOLUME 96.7 fL (73.0-96.2); MONOCYTES # (AUTO) 1.2 K/uL (2.0-10.0); MONOCYTES % (AUTO) 12.5 % (0.0-11.0); NEUTROPHILS % (AUTO) 75.9 % (38.5-71.5); PLATELET COUNT (AUTO) 92 K/uL (152-348); RED BLOOD CELL COUNT(AUTO) 3.33 MIL/uL (4.06-5.63); WHITE BLOOD COUNT (AUTO) 9.2 K/uL (3.6-10.2)
[2020-10-07 07:19] LABS: BILIRUBIN,DIRECT 4.2 mg/dL (0.0-0.2); BILIRUBIN,TOTAL 5.7 mg/dL (0.2-1.0); TOTAL PROTEIN, SERUM 5.6 g/dL (6.4-8.2)
[2020-10-07 07:32] LABS: MAGNESIUM 2.7 mg/dL (1.8-2.4); PHOSPHOROUS 6.4 mg/dL (2.5-4.9); POTASSIUM 3.7 mmol/L (3.5-5.1)
--- NOTE | 2020-10-07 07:45 | NUR ---
received pt in bed resting no signs of distress, confused to place and time, Diamond intact with kamlesh color urine, the pt is on 5L NC O2 sat is 96%, Sinus tachy 112/min Wrist restraints present, with circulation. IV on LFA is flushing well. Will continue to monitor
[2020-10-07] MEDS: ESCITALOPRAM OXALATE 10 MG TABLET PO SCH (08:32)
[2020-10-07] MEDS: SODIUM BICARBONATE 8.4% 100 MEQ in IV D5 1/2 NS 1000 ML 1,000 ML IV SCH ×2 (08:32→18:28)
[2020-10-07 09:20] LABS: CREATININE 11.3 mg/dL (0.6-1.3)
[2020-10-07 11:40] VITALS: BP 157/91
--- NOTE | 2020-10-07 12:05 | NUR ---
[facility] started pt is in bed no sign of distress
--- NOTE | 2020-10-07 12:25 | NUR ---
Ora called confirming pt has c-dif, texted dr Dillard to inform
--- NOTE | 2020-10-07 12:50 | NUR ---
Dr benoit replied with orders
--- NOTE | 2020-10-07 13:45 | NUR ---
[facility] finished 1.6L out BP 110/62 HR 112
[2020-10-07] MEDS: FOLIC ACID 1 MG in IV DEXTROSE 5% 50 ML IV SCH (14:01)
[2020-10-07 16:16] VITALS: BP 133/91
[2020-10-07] MEDS: VANCOMYCIN FOR PO/GT/NG USE PO SCH (17:36)
--- NOTE | 2020-10-07 18:54 | NUR ---
Pt is positive for cdif had many loose BMS during shift, pt had dialysis today at 1205, Diamond cath in place. bilateral soft wrist restraints. sodium bicarb running. Vanco was giving per doctors orders Remains NPO. Needs meet and attended to. Safety measures maintained.
[2020-10-07 19:24] LABS: BAND % (MANUAL) 17 % (0-10); LYMPHOCYTES % (MANUAL) 15 % (20-40); MONOCYTES % (MANUAL) 12 % (2-10); NEUTROPHILS % (MANUAL) 56 % (42-75)
--- NOTE | 2020-10-07 19:30 | NUR ---
Received patient in bed sleeping. On 5 liters of O2 via NC. Bilateral wrist restraints noted. Bilat hands cap refill <3 secs. IV line on MORIS in place, and intact. no infiltration noted infusion ongoing. Pt has F/C patent and in place, patient has scant amount of urine in neil bag. Remains NPO status. Will continue to monitor.
[2020-10-07 20:05] VITALS: BP 117/80
[2020-10-07] MEDS: INSULIN GLARGINE,HUM 300 UNITS/3 ML CARTRIDGE SQ SCH (20:58)
[2020-10-07] MEDS: THIAMINE HCL INJ 100 MG in IV DEXTROSE 5% 50 ML IV SCH (21:13)
[2020-10-08] VITALS (7 sets, daily range): BP systolic 131–145; BP diastolic 91–99
--- NOTE | 2020-10-08 | NUR ---
Vancocin PO not given drug is not available.
[2020-10-08] MEDS: SODIUM BICARBONATE 8.4% 100 MEQ in IV D5 1/2 NS 1000 ML 1,000 ML IV SCH ×2 (04:46→08:00)
[2020-10-08] MEDS: LORAZEPAM 2 MG/1 ML VIAL IV PRN ×2 (04:47→12:50)
[2020-10-08] MEDS: VANCOMYCIN FOR PO/GT/NG USE PO SCH ×5 (05:09→23:34)
[2020-10-08] MEDS: BLOOD SUGAR DIAGNOSTIC 1 EACH STRIP VI SCH ×4 (05:10→23:35)
--- NOTE | 2020-10-08 06:08 | NUR ---
Continues on O2 @ 5 LPM via NC sat 97%. IV access on MORIS with IV bicarb with D5 1/2NS @ 100 ml/hr started on 0500. The patient began to get agitated and restless at around 0445, order of Ativan 1 mg IVP given. Dose was effective. Pt had BM x4 so far this shift. Isolation precautions observed per protocol. Positioned for comfort.
--- NOTE | 2020-10-08 07:00 | NUR ---
received pt in bed resting no signs of distress, confused to place and time, Diamond intact with kamlesh color urine, the pt is 2L NC O2 sat is 96%, Sinus tachy 112/min Wrist restraints present, with circulation. IV on LFA is flushing well. Will continue to monitor
[2020-10-08 07:10] LABS: BASOPHILS # (AUTO) 0.1 K/uL (0.0-8.0); BASOPHILS % (AUTO) 0.7 % (0.0-2.0); EOSINOPHILS % (AUTO) 0.5 % (0.0-7.0); HEMATOCRIT 29.3 % (36.7-47.1); HEMOGLOBIN 10.2 g/dL (12.5-16.3); LYMPHOCYTES # (AUTO) 0.6 K/uL (20.0-40.0); LYMPHOCYTES % (AUTO) 6.9 % (20.5-51.5); MEAN CORPUSCULAR HEMOGLOBIN 33.2 uug (23.8-33.4); MEAN CORPUSCULAR HGB CONC 35 g/dL (32.5-36.3); MEAN CORPUSCULAR VOLUME 95.7 fL (73.0-96.2); MONOCYTES # (AUTO) 1.3 K/uL (2.0-10.0); MONOCYTES % (AUTO) 14.4 % (0.0-11.0); NEUTROPHILS # (AUTO) 6.9 K/uL (1.8-8.9); NEUTROPHILS % (AUTO) 77.5 % (38.5-71.5); PLATELET COUNT (AUTO) 73 K/uL (152-348); RED BLOOD CELL COUNT(AUTO) 3.06 MIL/uL (4.06-5.63); WHITE BLOOD COUNT (AUTO) 8.9 K/uL (3.6-10.2)
[2020-10-08 07:29] LABS: EOSINOPHILS % (MANUAL) 1 % (0-8); LYMPHOCYTES % (MANUAL) 7 % (20-40); MONOCYTES % (MANUAL) 14 % (2-10); NEUTROPHILS % (MANUAL) 78 % (42-75)
[2020-10-08 07:35] LABS: MAGNESIUM 2.5 mg/dL (1.8-2.4); PHOSPHOROUS 7.3 mg/dL (2.5-4.9); POTASSIUM 3.4 mmol/L (3.5-5.1)
[2020-10-08 07:41] LABS: BILIRUBIN,DIRECT 1.8 mg/dL (0.0-0.2); BILIRUBIN,TOTAL 2.9 mg/dL (0.2-1.0); TOTAL PROTEIN, SERUM 5.4 g/dL (6.4-8.2)
[2020-10-08 07:42] LABS: CREATININE 11.2 mg/dL (0.6-1.3)
[2020-10-08] MEDS: ESCITALOPRAM OXALATE 10 MG TABLET PO SCH (07:58)
[2020-10-08] MEDS: FOLIC ACID 1 MG in IV DEXTROSE 5% 50 ML IV SCH (11:06)
--- NOTE | 2020-10-08 13:03 | NUR ---
pt is very restless pulling the iv and heart monitor trying to getting out of bed reorient the pt and ativan 1mg iv given per md orders
[2020-10-08] MEDS: INSULIN REGULAR, HUMAN 300 UNIT/3 ML VIAL SQ PRN ×2 (18:30→23:37)
[2020-10-08] MEDS: THIAMINE HCL INJ 100 MG in IV DEXTROSE 5% 50 ML IV SCH (20:33)
[2020-10-08] MEDS: INSULIN GLARGINE,HUM 300 UNITS/3 ML CARTRIDGE SQ SCH (21:19)
[2020-10-09] VITALS: BP 143/94
[2020-10-09] MEDS: SODIUM BICARBONATE 8.4% 100 MEQ in IV D5 1/2 NS 1000 ML 1,000 ML IV SCH (02:22)
[2020-10-09 04:00] VITALS: BP 151/96
[2020-10-09] MEDS: VANCOMYCIN FOR PO/GT/NG USE PO SCH ×3 (05:27→17:20)
[2020-10-09] MEDS: BLOOD SUGAR DIAGNOSTIC 1 EACH STRIP VI SCH ×3 (05:30→18:02)
--- NOTE | 2020-10-09 06:30 | NUR ---
PT SLEPT INTERMITTENTLY. PRESCRIBED MEDICATION GIVEN AND PT TOLERATED IT WELL. PT STILL CONFUSED AND HAS LUCID MOMENTS. PT IN NO ACUTE DISTRESS. SAFETY AND COMFORT PROVIDED. WILL ENDORSE TO INCOMING NURSE FOR CONTINUITY OF CARE.
[2020-10-09 06:49] LABS: BASOPHILS % (AUTO) 0.3 % (0.0-2.0); EOSINOPHILS # (AUTO) 0.1 K/uL (0.0-0.7); EOSINOPHILS % (AUTO) 0.7 % (0.0-7.0); HEMATOCRIT 30.2 % (36.7-47.1); HEMOGLOBIN 10.1 g/dL (12.5-16.3); LYMPHOCYTES # (AUTO) 0.8 K/uL (20.0-40.0); LYMPHOCYTES % (AUTO) 6.7 % (20.5-51.5); MEAN CORPUSCULAR HGB CONC 33 g/dL (32.5-36.3); MEAN CORPUSCULAR VOLUME 95.8 fL (73.0-96.2); MONOCYTES # (AUTO) 1.2 K/uL (2.0-10.0); MONOCYTES % (AUTO) 10.8 % (0.0-11.0); NEUTROPHILS # (AUTO) 9.4 K/uL (1.8-8.9); NEUTROPHILS % (AUTO) 81.5 % (38.5-71.5); PLATELET COUNT (AUTO) 94 K/uL (152-348); RED BLOOD CELL COUNT(AUTO) 3.16 MIL/uL (4.06-5.63); WHITE BLOOD COUNT (AUTO) 11.5 K/uL (3.6-10.2)
[2020-10-09 07:06] LABS: MAGNESIUM 2.8 mg/dL (1.8-2.4); PHOSPHOROUS 7.7 mg/dL (2.5-4.9)
[2020-10-09 07:09] LABS: BILIRUBIN,DIRECT 1.2 mg/dL (0.0-0.2); BILIRUBIN,TOTAL 2.1 mg/dL (0.2-1.0); TOTAL PROTEIN, SERUM 5.5 g/dL (6.4-8.2)
[2020-10-09 07:23] LABS: CREATININE 13.3 mg/dL (0.6-1.3)
--- NOTE | 2020-10-09 07:45 | NUR ---
Received critical labs BUN [address] Dillard. No new orders.
--- NOTE | 2020-10-09 08:00 | NUR ---
Received PT in bed, awake AO X 4. No acute distress or SOB noted. PT is cooperative and pleasant. PT makes needs known to staff. No complain of pain noted at the time. PT in bed with safety measures, call light within reach, bed low and lock. Will continue to monitor. Addendum: 10/09/20 at 2006 by DINAH CRESPO RN Alert and Oriented to name and place. No acute distress. PLEASE SEE PREVIOUS NOTES
[2020-10-09 08:07] VITALS: BP 141/99
[2020-10-09] MEDS: ESCITALOPRAM OXALATE 10 MG TABLET PO SCH (09:32)
[2020-10-09 11:52] VITALS: BP 134/96
[2020-10-09] MEDS: FOLIC ACID 1 MG in IV DEXTROSE 5% 50 ML IV SCH (12:44)
[2020-10-09] MEDS: IV D5 1/2 NS 1000 ML 1,000 ML IV PRN (12:47)
[2020-10-09] MEDS: INSULIN REGULAR, HUMAN 300 UNIT/3 ML VIAL SQ PRN ×2 (14:03→18:02)
[2020-10-09] MEDS: POTASSIUM CHLORIDE 50 ML IV SCH ×2 (14:14→17:19)
[2020-10-09 15:59] VITALS: BP 140/92
--- NOTE | 2020-10-09 18:40 | NUR ---
Received PT in bed, awake AO X 2. No acute distress or SOB noted. PT is cooperative and pleasant. No complain of pain noted at the time. PT in bed with safety measures, call light within reach, bed low and lock. Will endorse to resource conservation specialist nurse
--- NOTE | 2020-10-09 19:00 | NUR ---
Pt in bed, awake. Denies any acute distress or pain at this time. V/S stable on 2L NC tolerating well. Diamond draining well. PIV on LFA 20 is intact with D5 1/2 NS running at 100cc. Safety measures in place. Call light within reach. Will continue with the plan of care.
[2020-10-09 19:48] VITALS: BP 131/95
[2020-10-09] MEDS ORDERED: THIAMINE HCL 200 MG/2 ML VIAL ONE (21:23)
[2020-10-09] MEDS: THIAMINE HCL INJ 100 MG in IV DEXTROSE 5% 50 ML IV SCH (21:44)
[2020-10-09] MEDS: INSULIN GLARGINE,HUM 300 UNITS/3 ML CARTRIDGE SQ SCH (21:56)
[2020-10-10 00:09] VITALS: BP 147/98
[2020-10-10] MEDS: BLOOD SUGAR DIAGNOSTIC 1 EACH STRIP VI SCH ×4 (00:51→18:03)
[2020-10-10] MEDS: VANCOMYCIN FOR PO/GT/NG USE PO SCH ×4 (01:03→18:02)
[2020-10-10] MEDS: INSULIN REGULAR, HUMAN 300 UNIT/3 ML VIAL SQ PRN ×4 (01:05→18:05)
[2020-10-10 04:40] VITALS: BP 138/94
[2020-10-10] MEDS: IV D5 1/2 NS 1000 ML 1,000 ML IV PRN ×2 (04:49→15:54)
--- NOTE | 2020-10-10 06:51 | NUR ---
Pt remained stable throughout the shift. Denies any acute distress or pain noted at this time. V/S stable on 2L NC tolerating well. NSR on tele monitor. Comfort care and needs attended. Isolation precaution maintained. Safety measures in place. Bed low and locked in position. Call light within reach. Will endorse to the oncoming nurse accordingly.
[2020-10-10 07:44] VITALS: BP 139/91
[2020-10-10] MEDS: ESCITALOPRAM OXALATE 10 MG TABLET PO SCH (08:31)
[2020-10-10] MEDS: ACETAMINOPHEN 325 MG TABLET PO PRN (08:33)
[2020-10-10 11:38] VITALS: BP 136/88
[2020-10-10] MEDS: FOLIC ACID 1 MG in IV DEXTROSE 5% 50 ML IV SCH (11:57)
--- NOTE | 2020-10-10 15:02 | NUR ---
hemodialysis given ongoing, patient tolerating well
[2020-10-10 15:46] VITALS: BP 98/57
[2020-10-10 20:00] VITALS: BP 127/80
[2020-10-10] MEDS: THIAMINE HCL INJ 100 MG in IV DEXTROSE 5% 50 ML IV SCH (21:28)
[2020-10-10] MEDS: INSULIN GLARGINE,HUM 300 UNITS/3 ML CARTRIDGE SQ SCH (21:29)
[2020-10-11] MEDS: VANCOMYCIN FOR PO/GT/NG USE PO SCH ×4 (00:24→17:29)
[2020-10-11] MEDS: BLOOD SUGAR DIAGNOSTIC 1 EACH STRIP VI SCH ×4 (00:27→17:17)
[2020-10-11] MEDS: INSULIN REGULAR, HUMAN 300 UNIT/3 ML VIAL SQ PRN ×3 (00:29→17:21)
[2020-10-11] MEDS: IV D5 1/2 NS 1000 ML 1,000 ML IV PRN ×2 (03:04→14:35)
[2020-10-11 06:20] VITALS: BP 125/76
--- NOTE | 2020-10-11 06:53 | NUR ---
Pt stable throughout the shift. Denies any acute distress or pain at this time. On 2L NC tolerating well. PIV on LFA20 is intact with D5 running at 100cc. Comfort care and needs attended. Pt remained NPO. Isolation precaution maintained. Blood glucose monitored closely and sliding scale protocol implemented. Safety measures in place Call light within reach. Will endorse to oncoming nurse accordingly.
[2020-10-11 07:14] LABS: BASOPHILS % (AUTO) 0.3 % (0.0-2.0); EOSINOPHILS # (AUTO) 0.2 K/uL (0.0-0.7); EOSINOPHILS % (AUTO) 1.3 % (0.0-7.0); HEMATOCRIT 24.1 % (36.7-47.1); HEMOGLOBIN 8.2 g/dL (12.5-16.3); LYMPHOCYTES # (AUTO) 0.5 K/uL (20.0-40.0); LYMPHOCYTES % (AUTO) 3.6 % (20.5-51.5); MEAN CORPUSCULAR HEMOGLOBIN 32.5 uug (23.8-33.4); MEAN CORPUSCULAR HGB CONC 34 g/dL (32.5-36.3); MEAN CORPUSCULAR VOLUME 95.2 fL (73.0-96.2); MONOCYTES # (AUTO) 0.9 K/uL (2.0-10.0); MONOCYTES % (AUTO) 7.1 % (0.0-11.0); NEUTROPHILS # (AUTO) 11.6 K/uL (1.8-8.9); NEUTROPHILS % (AUTO) 87.7 % (38.5-71.5); PLATELET COUNT (AUTO) 119 K/uL (152-348); RED BLOOD CELL COUNT(AUTO) 2.53 MIL/uL (4.06-5.63); WHITE BLOOD COUNT (AUTO) 13.2 K/uL (3.6-10.2)
[2020-10-11 07:21] LABS: BILIRUBIN,DIRECT 1.6 mg/dL (0.0-0.2); BILIRUBIN,TOTAL 1.9 mg/dL (0.2-1.0); MAGNESIUM 2.1 mg/dL (1.8-2.4); PHOSPHOROUS 5.2 mg/dL (2.5-4.9); POTASSIUM 2.9 mmol/L (3.5-5.1); TOTAL PROTEIN, SERUM 4.9 g/dL (6.4-8.2)
[2020-10-11] MEDS: ESCITALOPRAM OXALATE 10 MG TABLET PO SCH (07:55)
[2020-10-11 08:00] LABS: CREATININE 11.4 mg/dL (0.6-1.3)
[2020-10-11] MEDS: POTASSIUM CHLORIDE 50 ML IV SCH ×4 (09:17→13:11)
[2020-10-11] MEDS ORDERED: POTASSIUM CHLORIDE 20 MEQ TAB.PRT.SR PO ONE (11:30)
[2020-10-11 11:39] VITALS: BP 148/87
[2020-10-11] MEDS: FOLIC ACID 1 MG TABLET PO SCH (12:31)
[2020-10-11] MEDS: THIAMINE HCL 100 MG TABLET PO SCH (12:32)
[2020-10-11 16:08] VITALS: BP 141/89
[2020-10-11 16:10] LABS: *OCCULT BLOOD STOOL POSITIVE (NEGATIVE)
[2020-10-11 16:23] VITALS: BP 147/86
[2020-10-11 20:00] VITALS: BP 164/89
[2020-10-11] MEDS: INSULIN GLARGINE,HUM 300 UNITS/3 ML CARTRIDGE SQ SCH (20:51)
[2020-10-11] MEDS: LACTULOSE 20 G/30 ML LIQUID UDC PO SCH (20:52)
[2020-10-11] MEDS: ONDANSETRON 4 MG/2 ML VIAL IV PRN (22:45)
[2020-10-11] MEDS: ACETAMINOPHEN 325 MG TABLET PO PRN (22:45)
[2020-10-11] MEDS: HYDROCODONE/APAP 5-325MG TABLET PO PRN (22:45)
--- NOTE | 2020-10-11 23:12 | NUR ---
patient received in bed. aaox2. able to verbalize needs. soft wrist restraints on bilateral arms. PIV intact and patent. fever and nausea noted and tylenol and zofran administered. tolerated well. on safety precautions. will continue to monitor and assess throughout the night.
--- NOTE | 2020-10-11 23:35 | NUR ---
elevated BP noted and Laurent Jacobs DNP contacted. no new orders at this time.
[2020-10-12] MEDS: VANCOMYCIN FOR PO/GT/NG USE PO SCH ×5 (00:28→23:25)
[2020-10-12] MEDS: BLOOD SUGAR DIAGNOSTIC 1 EACH STRIP VI SCH ×5 (00:28→23:26)
[2020-10-12] MEDS: INSULIN REGULAR, HUMAN 300 UNIT/3 ML VIAL SQ PRN ×5 (00:28→23:43)
[2020-10-12] MEDS: IV D5 1/2 NS 1000 ML 1,000 ML IV PRN ×2 (02:20→12:18)
[2020-10-12 05:00] VITALS: BP 162/95
--- NOTE | 2020-10-12 06:59 | NUR ---
patient resting comfortably. BS coverage provided this morning. aaox2. all medications administered and tolerated well. safety precautions provided. bed in lowest position, side rails up x2 and bed alarm on. all needs attended to. will continue to monitor and assess until morning nurse arrives.
[2020-10-12 07:19] LABS: BASOPHILS # (AUTO) 0.1 K/uL (0.0-8.0); BASOPHILS % (AUTO) 0.4 % (0.0-2.0); EOSINOPHILS # (AUTO) 0.1 K/uL (0.0-0.7); EOSINOPHILS % (AUTO) 0.7 % (0.0-7.0); HEMATOCRIT 23.7 % (36.7-47.1); LYMPHOCYTES # (AUTO) 0.6 K/uL (20.0-40.0); LYMPHOCYTES % (AUTO) 4.2 % (20.5-51.5); MEAN CORPUSCULAR HEMOGLOBIN 32.5 uug (23.8-33.4); MEAN CORPUSCULAR HGB CONC 34 g/dL (32.5-36.3); MEAN CORPUSCULAR VOLUME 96.5 fL (73.0-96.2); MONOCYTES # (AUTO) 0.8 K/uL (2.0-10.0); MONOCYTES % (AUTO) 6.1 % (0.0-11.0); NEUTROPHILS % (AUTO) 88.6 % (38.5-71.5); PLATELET COUNT (AUTO) 172 K/uL (152-348); WHITE BLOOD COUNT (AUTO) 13.6 K/uL (3.6-10.2)
[2020-10-12 07:34] LABS: RED BLOOD CELL COUNT(AUTO) 2.45 MIL/uL (4.06-5.63)
[2020-10-12 08:06] LABS: BILIRUBIN,TOTAL 1.4 mg/dL (0.2-1.0); MAGNESIUM 2.3 mg/dL (1.8-2.4); PHOSPHOROUS 6.2 mg/dL (2.5-4.9); TOTAL PROTEIN, SERUM 5.6 g/dL (6.4-8.2)
[2020-10-12] MEDS: THIAMINE HCL 100 MG TABLET PO SCH (08:47)
[2020-10-12] MEDS: ESCITALOPRAM OXALATE 10 MG TABLET PO SCH (08:48)
[2020-10-12] MEDS: FOLIC ACID 1 MG TABLET PO SCH (08:48)
[2020-10-12] MEDS: LACTULOSE 20 G/30 ML LIQUID UDC PO SCH ×2 (08:48→21:28)
--- NOTE | 2020-10-12 09:56 | NUR ---
dialysis in progress, pt alert and oriented x2
[2020-10-12 11:29] VITALS: BP 122/67
--- NOTE | 2020-10-12 12:30 | NUR ---
hemodialysis completed 1100 ml removed by HD nurse
--- NOTE | 2020-10-12 13:00 | NUR ---
alert/oriented x3- able to comprehend well, soft wrist restraints off at this time
[2020-10-12 16:22] VITALS: BP 139/91
--- NOTE | 2020-10-12 19:10 | NUR ---
remians awake alert orientedx3, restraints off, no distress noted, all needs attended and met safety measures maintained
--- NOTE | 2020-10-12 20:00 | NUR ---
RECEIVED PT IN NO ACUTE DISTRESS.PT ALERT, AWAKE AND ORIENTEDX3. IV INTACT. SAFETY AND COMFORT PROVIDED. WILL CONTINUE TO MONITOR.
[2020-10-12 20:06] VITALS: BP 112/76
[2020-10-12] MEDS: ACETAMINOPHEN 325 MG TABLET PO PRN (21:28)
[2020-10-12] MEDS: INSULIN GLARGINE,HUM 300 UNITS/3 ML CARTRIDGE SQ SCH (22:07)
[2020-10-13] MEDS: IV D5 1/2 NS 1000 ML 1,000 ML IV PRN ×3 (02:30→23:05)
[2020-10-13 04:12] VITALS: BP 143/84
[2020-10-13] MEDS: INSULIN REGULAR, HUMAN 300 UNIT/3 ML VIAL SQ PRN ×4 (05:26→23:12)
[2020-10-13] MEDS: VANCOMYCIN FOR PO/GT/NG USE PO SCH ×4 (05:26→23:10)
[2020-10-13] MEDS: BLOOD SUGAR DIAGNOSTIC 1 EACH STRIP VI SCH ×4 (05:27→23:06)
--- NOTE | 2020-10-13 06:17 | NUR ---
PT SLEPT INTERMITTENTLY. PT ALERT. PT IN NO ACUTE DISTRESS. IV INTACT. PT VITAL SIGNS WNL. PRESCRIBED MEDICATION GIVEN AND PT TOLERATED IT WELL. PT UPSET BECAUSE OF LOOSE BOWEL MOVEMENT. SAFETY AND COMFORT PROVIDED. ALL NEEDS ARE MET. WILL ENDORSE TO INCOMING NURSE FOR CONTINUITY OF CARE.
[2020-10-13 06:51] LABS: BASOPHILS # (AUTO) 0.1 K/uL (0.0-8.0); BASOPHILS % (AUTO) 0.5 % (0.0-2.0); EOSINOPHILS # (AUTO) 0.1 K/uL (0.0-0.7); EOSINOPHILS % (AUTO) 0.8 % (0.0-7.0); HEMATOCRIT 22.9 % (36.7-47.1); HEMOGLOBIN 7.9 g/dL (12.5-16.3); LYMPHOCYTES # (AUTO) 0.9 K/uL (20.0-40.0); LYMPHOCYTES % (AUTO) 6.9 % (20.5-51.5); MEAN CORPUSCULAR HEMOGLOBIN 33.1 uug (23.8-33.4); MEAN CORPUSCULAR HGB CONC 35 g/dL (32.5-36.3); MONOCYTES # (AUTO) 0.8 K/uL (2.0-10.0); MONOCYTES % (AUTO) 5.9 % (0.0-11.0); NEUTROPHILS # (AUTO) 11.2 K/uL (1.8-8.9); NEUTROPHILS % (AUTO) 85.9 % (38.5-71.5); PLATELET COUNT (AUTO) 212 K/uL (152-348)
[2020-10-13 07:16] LABS: MAGNESIUM 2.2 mg/dL (1.8-2.4); PHOSPHOROUS 5.7 mg/dL (2.5-4.9)
[2020-10-13 07:47] LABS: RED BLOOD CELL COUNT(AUTO) 2.39 MIL/uL (4.06-5.63)
[2020-10-13 08:16] LABS: CREATININE 12.4 mg/dL (0.6-1.3)
--- NOTE | 2020-10-13 08:35 | NUR ---
PT came to see patient
[2020-10-13] MEDS: THIAMINE HCL 100 MG TABLET PO SCH (08:54)
[2020-10-13] MEDS: ESCITALOPRAM OXALATE 10 MG TABLET PO SCH (08:54)
[2020-10-13] MEDS: LACTULOSE 20 G/30 ML LIQUID UDC PO SCH ×2 (08:54→20:57)
[2020-10-13] MEDS: FOLIC ACID 1 MG TABLET PO SCH (08:55)
[2020-10-13 11:32] VITALS: BP 144/79
[2020-10-13] MEDS: PANTOPRAZOLE SODIUM 40 MG VIAL IV SCH ×2 (12:14→20:57)
--- NOTE | 2020-10-13 14:38 | NUR ---
Visual C Developer Consultation: 2:00pm: This SW met with the patient today. Reason for consultation is alcohol abuse. Patient is a 35 year old male who came to the ED on 10/02/20 for abdominal pain, alcohol pancreatitis. Patient is alert, oriented x 4, receptive to meeting with this SW. Patient lives at home ([address] [place] [address]., [address], [place] [address]) with his mother and the mother's . 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 Patient discussed feelings of loneliness that started a few months ago when he couldn't work and couldn't see his family due to some of his family members having COVID, resulting in increased drinking. Patient reports hx of drinking "on the weekends for years". Patient reported that over the last few months, patient began drinking daily, 1-2 glasses of whiskey a day. Patient also reported a history of smoking cigarettes, initially started smoking at age 15, stopped at 23, but then started again about 2 years ago. Patient reports that lately he was smoking 1/2 a cigarette a day, because it would make him too dizzy. Patient denied use of any other drugs. Patient reports diagnosis of Anxiety. Patient reported that he was taking Ativan in the past, but is currently taking Lexapro. Patient reports seeing his PCP regularly. Patient denied SI. Patient's thought process and content were clear and appropriate. Patient maintained appropriate eye contact throughout this interview. Patient's speech was clear, tone of voice was WNL. Affect and behavior were WNL. SW explored patient's needs for community resources, such as mental health services and substance abuse treatment programs, and patient declined these resources. Patient stated that "this has been a wake up call" and that he plans to start living a healthier life, exercising more, taking his dogs for walks and going bike riding. SW commended patient for identifying healthy coping skills. Patient also stated that he has a supportive girlfriend. Discharge plans discussed, and patient stated that he would be returning home after this hospitalization. No SS interventions needed at this time, however this SW informed the patient that if he changes his mind regarding the resources discussed, that this social service agency director is available to provide him with this information. Patient expressed understanding and thanked IVAN for her time and support.
[2020-10-13 16:00] VITALS: BP 148/85
--- NOTE | 2020-10-13 16:19 | NUR ---
Received PT in bed AO X 3 no acute distress or SOB. Pt is cooperative. No complaints of pain at this time, Diamond in place and intact, safety measures in place. Will continue to monitor Addendum: 10/13/20 at 1843 by ERNESTINE DOCKERY LVN Document wrong time meant for [id number]
--- NOTE | 2020-10-13 19:12 | NUR ---
End Shift Pt is in bed no signs of distress, Diamond cath was taken out. Pt is on Room air, AOx 4. Pt is able to express needs, Safety measures were taken. Pts needs were met.
[2020-10-13 20:24] VITALS: BP 143/79
[2020-10-13] MEDS: INSULIN GLARGINE,HUM 300 UNITS/3 ML CARTRIDGE SQ SCH (20:59)
--- NOTE | 2020-10-13 23:40 | NUR ---
Awake upon initial rounds.AAOx3-4 Needs attended. VSS. Compliant with meds. Incontinent of bowel and bladder. Kept clean and dry. No BM noted this shift. Will monitor patient. Fall precautions maintained. Siderails up for safety.
[2020-10-14 04:39] VITALS: BP 139/76
[2020-10-14] MEDS: VANCOMYCIN FOR PO/GT/NG USE PO SCH ×4 (05:14→23:58)
[2020-10-14] MEDS: BLOOD SUGAR DIAGNOSTIC 1 EACH STRIP VI SCH ×3 (05:25→18:38)
[2020-10-14] MEDS: INSULIN REGULAR, HUMAN 300 UNIT/3 ML VIAL SQ PRN ×3 (05:28→18:54)
--- NOTE | 2020-10-14 07:30 | NUR ---
Received pt, awake alert and oriented x4. pt on RA, no signs of distress noted. IV on the left forearm 20g, and on the right upper arm, midline 20g. bed in low and locked position, safety precautions in place, will continue to monitor.
[2020-10-14] MEDS: PANTOPRAZOLE SODIUM 40 MG VIAL IV SCH ×2 (08:56→21:19)
[2020-10-14] MEDS: ESCITALOPRAM OXALATE 10 MG TABLET PO SCH (08:56)
[2020-10-14] MEDS: THIAMINE HCL 100 MG TABLET PO SCH (08:57)
[2020-10-14] MEDS: FOLIC ACID 1 MG TABLET PO SCH (08:57)
[2020-10-14] MEDS: LACTULOSE 20 G/30 ML LIQUID UDC PO SCH ×2 (08:57→21:20)
[2020-10-14] MEDS: IV D5 1/2 NS 1000 ML 1,000 ML IV PRN (09:19)
[2020-10-14 12:00] VITALS: BP 144/78
--- NOTE | 2020-10-14 12:00 | NUR ---
Pt ended dialysis. boat canvas maker installer reported pt tolerated well. Vitals are BP 138/68, pulse 91, temp 98. 600 out. Will continue to monitor.
[2020-10-14 16:43] VITALS: BP 124/67
--- NOTE | 2020-10-14 18:39 | NUR ---
pt resting bed, awake alert and oriented x4. pt on RA, no signs of distress noted. IV on the left FA 20g and Right UA midline 20g. On a clear liquid diet. medications given as ordered. Bed in low and locked position, safety precautions in place. Will endorse to oncoming nurse.
[2020-10-14 18:55] LABS: CREATININE 10.2 mg/dL (0.6-1.3)
--- NOTE | 2020-10-14 19:00 | NUR ---
RECD PT IN BED,RESTING QUIETLY, NO DISTRESS NOTED. ALERT ,ORIENTEDX4, NO COMPLAINTS PRESENTED.
[2020-10-14 20:08] VITALS: BP 140/84
[2020-10-14 20:53] VITALS: BP 140/84
[2020-10-14] MEDS: INSULIN GLARGINE,HUM 300 UNITS/3 ML CARTRIDGE SQ SCH (21:26)
[2020-10-14] MEDS: ACIDOPHILUS/BULGARICUS CHEW TAB PO SCH (21:33)
[2020-10-15] MEDS: INSULIN REGULAR, HUMAN 300 UNIT/3 ML VIAL SQ PRN ×4 (00:05→23:21)
[2020-10-15 04:50] VITALS: BP 139/80
--- NOTE | 2020-10-15 05:59 | NUR ---
SLEPT ON AND OFF,NEEDS ATTENDED TO.ENDORSED TO AM NURSE IN APPARENTLY FAIR CONDITION.
[2020-10-15] MEDS: BLOOD SUGAR DIAGNOSTIC 1 EACH STRIP VI SCH ×5 (06:00→23:16)
[2020-10-15] MEDS: ACIDOPHILUS/BULGARICUS CHEW TAB PO SCH ×3 (06:22→21:20)
[2020-10-15] MEDS: VANCOMYCIN FOR PO/GT/NG USE PO SCH ×3 (06:22→17:18)
[2020-10-15 06:35] LABS: BASOPHILS # (AUTO) 0.1 K/uL (0.0-8.0); BASOPHILS % (AUTO) 0.8 % (0.0-2.0); EOSINOPHILS # (AUTO) 0.1 K/uL (0.0-0.7); EOSINOPHILS % (AUTO) 0.7 % (0.0-7.0); HEMATOCRIT 23.2 % (36.7-47.1); LYMPHOCYTES # (AUTO) 1.3 K/uL (20.0-40.0); LYMPHOCYTES % (AUTO) 8.3 % (20.5-51.5); MEAN CORPUSCULAR HEMOGLOBIN 32.7 uug (23.8-33.4); MEAN CORPUSCULAR HGB CONC 35 g/dL (32.5-36.3); MEAN CORPUSCULAR VOLUME 94.7 fL (73.0-96.2); MONOCYTES # (AUTO) 1.1 K/uL (2.0-10.0); NEUTROPHILS # (AUTO) 12.9 K/uL (1.8-8.9); NEUTROPHILS % (AUTO) 83.2 % (38.5-71.5); PLATELET COUNT (AUTO) 383 K/uL (152-348); WHITE BLOOD COUNT (AUTO) 15.4 K/uL (3.6-10.2)
[2020-10-15 06:46] LABS: RED BLOOD CELL COUNT(AUTO) 2.45 MIL/uL (4.06-5.63)
[2020-10-15 07:29] LABS: BILIRUBIN,TOTAL 1.1 mg/dL (0.2-1.0); PHOSPHOROUS 6.1 mg/dL (2.5-4.9); TOTAL PROTEIN, SERUM 6.6 g/dL (6.4-8.2)
[2020-10-15] MEDS: ESCITALOPRAM OXALATE 10 MG TABLET PO SCH (08:00)
[2020-10-15] MEDS: FOLIC ACID 1 MG TABLET PO SCH (08:00)
[2020-10-15] MEDS: THIAMINE HCL 100 MG TABLET PO SCH (08:00)
[2020-10-15] MEDS: LACTULOSE 20 G/30 ML LIQUID UDC PO SCH ×2 (08:00→21:00)
[2020-10-15 08:22] LABS: CREATININE 11.6 mg/dL (0.6-1.3); POTASSIUM 2.6 mmol/L (3.5-5.1)
[2020-10-15] MEDS: PANTOPRAZOLE SODIUM 40 MG VIAL IV SCH (08:27)
[2020-10-15] MEDS ORDERED: POTASSIUM CHLORIDE 20 MEQ TAB.PRT.SR PO ONE (10:00)
[2020-10-15 11:33] VITALS: BP 153/92
[2020-10-15 16:00] VITALS: BP 151/87
[2020-10-15] MEDS: PANTOPRAZOLE SODIUM 40 MG TABLET.DR PO SCH (16:37)
--- NOTE | 2020-10-15 19:46 | NUR ---
Received call from with new order CBC and BMP around 5066-1258 A.m tomorrow ,order noted and carried out.Labs department and patient made aware.
--- NOTE | 2020-10-15 20:12 | NUR ---
PAtient ALOx4.Resting in bed.On RA .Denies pain .No s/s of distress noted.Patient has 2 IV access one on Right upper arm midline patent and intact and left FA 20 g .Patient on NPO after midnight.Patient verbalized understanding.Continue safety measures .Call light with in reach.Will continue to monitor.
[2020-10-15 20:18] VITALS: BP 150/84
[2020-10-15] MEDS: INSULIN GLARGINE,HUM 300 UNITS/3 ML CARTRIDGE SQ SCH (21:19)
[2020-10-16 04:05] LABS: BASOPHILS # (AUTO) 0.1 K/uL (0.0-8.0); EOSINOPHILS # (AUTO) 0.1 K/uL (0.0-0.7); MONOCYTES # (AUTO) 1.1 K/uL (2.0-10.0)
[2020-10-16 04:06] LABS: BASOPHILS % (AUTO) 0.6 % (0.0-2.0); LYMPHOCYTES # (AUTO) 1.3 K/uL (20.0-40.0); LYMPHOCYTES % (AUTO) 8.8 % (20.5-51.5); MEAN CORPUSCULAR HEMOGLOBIN 31.6 uug (23.8-33.4); MEAN CORPUSCULAR HGB CONC 34 g/dL (32.5-36.3); MEAN CORPUSCULAR VOLUME 93.2 fL (73.0-96.2); MONOCYTES % (AUTO) 7.5 % (0.0-11.0); NEUTROPHILS # (AUTO) 11.8 K/uL (1.8-8.9); NEUTROPHILS % (AUTO) 82.1 % (38.5-71.5); PLATELET COUNT (AUTO) 382 K/uL (152-348); WHITE BLOOD COUNT (AUTO) 14.4 K/uL (3.6-10.2)
--- NOTE | 2020-10-16 04:06 | NUR ---
JOANN WORKS DRAWN, PROCEDURE TOLERATED WELL. NPO MAINTAINED, SLEPT INTERMITTENTLY.NEEDS ATTENDED TO.
[2020-10-16 04:18] VITALS: BP 141/86
[2020-10-16 04:28] LABS: POTASSIUM 2.8 mmol/L (3.5-5.1)
[2020-10-16 04:29] LABS: CREATININE 12.8 mg/dL (0.6-1.3); HEMATOCRIT 20.7 % (36.7-47.1); RED BLOOD CELL COUNT(AUTO) 2.22 MIL/uL (4.06-5.63)
[2020-10-16] MEDS: VANCOMYCIN FOR PO/GT/NG USE PO SCH ×5 (06:00→23:15)
[2020-10-16] MEDS: ACIDOPHILUS/BULGARICUS CHEW TAB PO SCH ×3 (06:00→21:39)
[2020-10-16] MEDS: BLOOD SUGAR DIAGNOSTIC 1 EACH STRIP VI SCH ×4 (06:42→20:39)
[2020-10-16] MEDS: PANTOPRAZOLE SODIUM 40 MG TABLET.DR PO SCH ×2 (07:00→16:12)
--- NOTE | 2020-10-16 07:05 | NUR ---
READY FOR PERMA CATH PLACEMENT, AM CARE SELF DONE.CONSENT DONE.LAB RESULTS COMMUNICATED TO OR STAFF.
--- NOTE | 2020-10-16 07:22 | NUR ---
PT WAS P/U VIA BED FOR OR.
[2020-10-16] MEDS ORDERED: HEPARIN/NS 500 ML ONE (07:24)
[2020-10-16] MEDS ORDERED: BUPIVACAINE 0.25% 30 ML VIAL ONE (07:24)
[2020-10-16] MEDS ORDERED: HEPARIN SODIUM,PORCINE 1,000 UNITS/ML VIAL ONE ×2 (07:24→07:35)
[2020-10-16] MEDS ORDERED: PROPOFOL 200 MG/20 ML BOTTLE ONE (07:31)
[2020-10-16] MEDS ORDERED: MIDAZOLAM HCL 10 MG/2 ML VIAL ONE (07:31)
[2020-10-16] MEDS ORDERED: LIDOCAINE-MPF 2% 5 ML VIAL IJ ONE (08:29)
[2020-10-16] MEDS: LACTULOSE 20 G/30 ML LIQUID UDC PO SCH ×2 (09:00→20:14)
[2020-10-16] MEDS: THIAMINE HCL 100 MG TABLET PO SCH (09:05)
[2020-10-16] MEDS: ESCITALOPRAM OXALATE 10 MG TABLET PO SCH (09:05)
[2020-10-16] MEDS: FOLIC ACID 1 MG TABLET PO SCH (09:06)
--- NOTE | 2020-10-16 09:07 | NUR ---
received from recovery room via bed in stable condition PermCath insertion done on his left side
[2020-10-16 12:18] VITALS: BP 149/88
--- NOTE | 2020-10-16 12:24 | NUR ---
dialysis done 1100 ml removed
[2020-10-16 16:18] VITALS: BP 146/88
[2020-10-16] MEDS: INSULIN REGULAR, HUMAN 300 UNIT/3 ML VIAL SQ PRN (17:02)
[2020-10-16] MEDS ORDERED: DEXTROSE 50% 50 ML DISP.SYRIN IV PRN (20:00)
[2020-10-16] MEDS ORDERED: POTASSIUM CHLORIDE 10 MEQ TAB.PRT.SR PO ONE (20:00)
--- NOTE | 2020-10-16 20:00 | NUR ---
RECEIVED PATIENT AWAKE IN BED. A/O X4. DENIES ANY PAIN OR DISCOMFORT AT THIS TIME. NO RESP. DISTRESS NOTED. VS WNL. MID-LINE NOTED TO RIGHT UPPER ARM, INTACT. ON ISOLATION FOR CONTACT, C-DIFF. CALL LIGHT IN REACH. ALL NEEDS ATTENDED, WILL CONTINUE TO MONITOR AND ASSESS.
[2020-10-16 20:06] VITALS: BP 143/86
[2020-10-16] MEDS: INSULIN GLARGINE,HUM 300 UNITS/3 ML CARTRIDGE SQ SCH (20:41)
[2020-10-16] MEDS: INSULIN REGULAR, HUMAN 300 UNITS/3 ML VIAL SQ PRN (20:42)
[2020-10-17 05:13] VITALS: BP 150/95
[2020-10-17] MEDS: PANTOPRAZOLE SODIUM 40 MG TABLET.DR PO SCH (06:04)
[2020-10-17] MEDS: VANCOMYCIN FOR PO/GT/NG USE PO SCH ×4 (06:04→23:28)
[2020-10-17] MEDS: ACIDOPHILUS/BULGARICUS CHEW TAB PO SCH ×3 (06:04→21:08)
[2020-10-17] MEDS: BLOOD SUGAR DIAGNOSTIC 1 EACH STRIP VI SCH ×4 (06:30→20:37)
[2020-10-17 07:34] LABS: CREATININE 9.6 mg/dL (0.6-1.3)
[2020-10-17] MEDS: INSULIN REGULAR, HUMAN 300 UNIT/3 ML VIAL SQ PRN ×2 (07:44→11:30)
[2020-10-17] MEDS: ESCITALOPRAM OXALATE 10 MG TABLET PO SCH (08:03)
[2020-10-17] MEDS: THIAMINE HCL 100 MG TABLET PO SCH (08:03)
[2020-10-17] MEDS: FOLIC ACID 1 MG TABLET PO SCH (08:03)
[2020-10-17] MEDS ORDERED: POTASSIUM CHLORIDE 20 MEQ TAB.PRT.SR PO ONE (08:30)
[2020-10-17 11:54] VITALS: BP 140/93
[2020-10-17 16:00] VITALS: BP 142/90
[2020-10-17 20:31] VITALS: BP 145/89
[2020-10-17] MEDS: ACETAMINOPHEN 325 MG TABLET PO PRN (20:37)
[2020-10-17] MEDS: INSULIN GLARGINE,HUM 300 UNITS/3 ML CARTRIDGE SQ SCH (20:38)
[2020-10-17] MEDS: INSULIN REGULAR, HUMAN 300 UNITS/3 ML VIAL SQ PRN (20:39)
[2020-10-17] MEDS ORDERED: PANTOPRAZOLE SODIUM 40 MG VIAL IV SCH (21:00)
--- NOTE | 2020-10-18 04:19 | NUR ---
Received pt at the beginning of shift resting in bed and watching tv. AAO x4. No acute distress noted. Denies pain/ discomfort. Due meds were given as ordered. Right upper arm midline, patent and intact. Pt is on isolation for c.diff. All needs attended to promptly. Safety measures maintained. Call light and personal items within reach. Will continue to monitor.
[2020-10-18 06:03] VITALS: BP 146/90
[2020-10-18] MEDS: ACIDOPHILUS/BULGARICUS CHEW TAB PO SCH ×3 (06:15→22:12)
[2020-10-18] MEDS: VANCOMYCIN FOR PO/GT/NG USE PO SCH ×3 (06:15→17:53)
[2020-10-18] MEDS: BLOOD SUGAR DIAGNOSTIC 1 EACH STRIP VI SCH ×4 (06:40→21:00)
[2020-10-18 07:04] LABS: BASOPHILS # (AUTO) 0.1 K/uL (0.0-8.0); MONOCYTES # (AUTO) 1.2 K/uL (2.0-10.0)
[2020-10-18 07:07] LABS: BASOPHILS % (AUTO) 0.6 % (0.0-2.0); EOSINOPHILS # (AUTO) 0.1 K/uL (0.0-0.7); EOSINOPHILS % (AUTO) 0.8 % (0.0-7.0); HEMATOCRIT 21.9 % (36.7-47.1); LYMPHOCYTES % (AUTO) 6.9 % (20.5-51.5); MEAN CORPUSCULAR HEMOGLOBIN 31.3 uug (23.8-33.4); MEAN CORPUSCULAR HGB CONC 33 g/dL (32.5-36.3); MEAN CORPUSCULAR VOLUME 93.9 fL (73.0-96.2); NEUTROPHILS # (AUTO) 12.5 K/uL (1.8-8.9); NEUTROPHILS % (AUTO) 83.7 % (38.5-71.5); PLATELET COUNT (AUTO) 527 K/uL (152-348); WHITE BLOOD COUNT (AUTO) 14.9 K/uL (3.6-10.2)
[2020-10-18 07:08] LABS: POTASSIUM 3.1 mmol/L (3.5-5.1)
[2020-10-18 07:34] LABS: CREATININE 9.4 mg/dL (0.6-1.3)
[2020-10-18 08:00] VITALS: BP 142/91
--- NOTE | 2020-10-18 08:05 | NUR ---
Received Patient resting in bed, awake, alert and oriented x4. On RA, with no signs of distress noted. IV on the left forearm 20g, and on the right upper arm, midline 20g. Will continue to monitor.
[2020-10-18] MEDS ORDERED: POTASSIUM CHLORIDE 20 MEQ TAB.PRT.SR PO ONE (08:30)
[2020-10-18 08:32] LABS: RED BLOOD CELL COUNT(AUTO) 2.34 MIL/uL (4.06-5.63)
[2020-10-18 08:37] LABS: HEMOGLOBIN 7.3 g/dL (12.5-16.3)
[2020-10-18] MEDS ORDERED: PANTOPRAZOLE SODIUM 40 MG TABLET.DR PO SCH (09:00)
[2020-10-18] MEDS: THIAMINE HCL 100 MG TABLET PO SCH (09:33)
[2020-10-18] MEDS: ESCITALOPRAM OXALATE 10 MG TABLET PO SCH (09:33)
[2020-10-18] MEDS: FOLIC ACID 1 MG TABLET PO SCH (09:33)
[2020-10-18] MEDS: INSULIN REGULAR, HUMAN 300 UNIT/3 ML VIAL SQ PRN ×3 (09:38→17:57)
[2020-10-18] MEDS: PANTOPRAZOLE SODIUM 40 MG VIAL IV SCH ×2 (09:54→22:12)
[2020-10-18 12:00] VITALS: BP 131/86
[2020-10-18 16:28] VITALS: BP 135/85
--- NOTE | 2020-10-18 17:40 | NUR ---
Dialysis done 1000 ml removed, Patient alert and oriented X4 with S/S of distress noted.
[2020-10-18 20:00] VITALS: BP 134/87
--- NOTE | 2020-10-18 20:16 | NUR ---
Received patient in bed awake and alert x4.Denies pain.No Acute distress noted.On Ra.ambulates to bathroom.Compliant with medication.No a/r reaction noted.Dialysis catheter in left upper chest in place.Dressing clean and dry.Continue on isolation for c.diff. Call light with in reach.
[2020-10-18] MEDS: INSULIN REGULAR, HUMAN 300 UNITS/3 ML VIAL SQ PRN (22:16)
[2020-10-18] MEDS: INSULIN GLARGINE,HUM 300 UNITS/3 ML CARTRIDGE SQ SCH (22:16)
[2020-10-18 23:43] VITALS: BP 134/87
[2020-10-19] VITALS (9 sets, daily range): BP systolic 107–140; BP diastolic 64–88
[2020-10-19] MEDS: VANCOMYCIN FOR PO/GT/NG USE PO SCH ×3 (00:05→12:55)
[2020-10-19] MEDS: ACETAMINOPHEN 325 MG TABLET PO PRN (00:32)
--- NOTE | 2020-10-19 02:11 | NUR ---
Received call from blood bnk.PRBc 1 unit ready .Started blood transfusion .Vs taken 137/77,84.,18,98 % in room air, 98.9.Patient denies pain at this time.Will continue to monitor.
[2020-10-19] MEDS: ACIDOPHILUS/BULGARICUS CHEW TAB PO SCH ×2 (05:25→16:10)
--- NOTE | 2020-10-19 05:30 | NUR ---
Blood transfusion completed.No a/r noted.VSS.Patient had Bm x1.Denies diarrhea.All needs anticipated and met accordingly.
[2020-10-19] MEDS: BLOOD SUGAR DIAGNOSTIC 1 EACH STRIP VI SCH ×3 (06:33→16:04)
[2020-10-19 07:21] LABS: CREATININE 6.5 mg/dL (0.6-1.3); POTASSIUM 3.5 mmol/L (3.5-5.1)
[2020-10-19] MEDS: THIAMINE HCL 100 MG TABLET PO SCH (08:15)
[2020-10-19] MEDS: FOLIC ACID 1 MG TABLET PO SCH (08:15)
[2020-10-19] MEDS: ESCITALOPRAM OXALATE 10 MG TABLET PO SCH (08:15)
[2020-10-19] MEDS: PANTOPRAZOLE SODIUM 40 MG VIAL IV SCH (08:15)
[2020-10-19] MEDS: INSULIN REGULAR, HUMAN 300 UNIT/3 ML VIAL SQ PRN ×2 (08:18→12:52)
[2020-10-19 14:20] LABS: BASOPHILS % (AUTO) 0.4 % (0.0-2.0); EOSINOPHILS # (AUTO) 0.1 K/uL (0.0-0.7); HEMOGLOBIN 9.1 g/dL (12.5-16.3); LYMPHOCYTES # (AUTO) 1.9 K/uL (20.0-40.0); LYMPHOCYTES % (AUTO) 15.2 % (20.5-51.5); MEAN CORPUSCULAR HEMOGLOBIN 30.9 uug (23.8-33.4); MEAN CORPUSCULAR HGB CONC 33 g/dL (32.5-36.3); MEAN CORPUSCULAR VOLUME 94.9 fL (73.0-96.2); MONOCYTES % (AUTO) 7.9 % (0.0-11.0); NEUTROPHILS # (AUTO) 9.4 K/uL (1.8-8.9); NEUTROPHILS % (AUTO) 75.5 % (38.5-71.5); PLATELET COUNT (AUTO) 536 K/uL (152-348); RED BLOOD CELL COUNT(AUTO) 2.95 MIL/uL (4.06-5.63); WHITE BLOOD COUNT (AUTO) 12.4 K/uL (3.6-10.2)
[2020-10-19] MEDS ORDERED: THIA100T13 PO (15:14)
[2020-10-19] MEDS ORDERED: ACID1TAB4 PO (15:14)
[2020-10-19] MEDS ORDERED: Folic Acid PO (15:14)
[2020-10-19] MEDS ORDERED: VANC500V PO (15:14)
[2020-10-19] MEDS ORDERED: PANT40VI PO (15:14)
[2020-10-19] MEDS: INSULIN REGULAR, HUMAN 300 UNITS/3 ML VIAL SQ PRN (16:05)
--- NOTE | 2020-10-19 17:55 | NUR ---
Patient discharged to home via private car. Escorted and assisted to car safely. Patient is alert, oriented. No SOB. vital signs stable. No distress noted. Patient given instructions regarding follow up with Primary MD. Reminded patient of HD treatment 3x/ week. Prescriptions given to patient. ID Band and IV Access removed. Belongings are accounted and signed. Sent with patient.
== END 2020-10-19 17:55 | disposition home or self-care (01) | DRG 282 ==
LOC: ER 19:44 → TRANSITION 23:32 → TELE 10-04 21:56 → MED 10-10 10:15 → MEDSURG3 10-12 20:01
PROVIDERS: ADMIT Nurse Practitioner Acute Care; ATTEND Family Medicine
PROC: 06HY33Z Insertion of Infusion Device into Lower Vein, Percutaneous Approach (ICD-10-PCS; 2020-10-04)
PROC: 5A1D70Z Performance of Urinary Filtration, Intermittent, Less than 6 Hours Per Day (ICD-10-PCS; principal; 2020-10-05)
PROC: B547ZZA Ultrasonography of Left Subclavian Vein, Guidance (ICD-10-PCS; 2020-10-11)
PROC: 05H633Z Insertion of Infusion Device into Left Subclavian Vein, Percutaneous Approach (ICD-10-PCS; 2020-10-11)
PROC: 0JH63XZ Insertion of Tunneled Vascular Access Device into Chest Subcutaneous Tissue and Fascia, Percutaneous Approach (ICD-10-PCS; 2020-10-16)
PROC: 02H633Z Insertion of Infusion Device into Right Atrium, Percutaneous Approach (ICD-10-PCS; 2020-10-16)
PROC: B518YZA Fluoroscopy of Superior Vena Cava using Other Contrast, Guidance (ICD-10-PCS; 2020-10-16)
PROC: 30233N1 Transfusion of Nonautologous Red Blood Cells into Peripheral Vein, Percutaneous Approach (ICD-10-PCS; 2020-10-19)
DX: K85.20 Alcohol induced acute pancreatitis without necrosis or infection (principal); Y90.5 Blood alcohol level of 100-119 mg/100 ml; N17.0 Acute kidney failure with tubular necrosis; A04.72 Enterocolitis due to Clostridium difficile, not specified as recurrent; E86.0 Dehydration; D64.9 Anemia, unspecified; Z99.2 Dependence on renal dialysis; K86.0 Alcohol-induced chronic pancreatitis; D72.829 Elevated white blood cell count, unspecified; D69.59 Other secondary thrombocytopenia; G92 Toxic encephalopathy; E87.6 Hypokalemia; E87.2 Acidosis; R74.01 Elevation of levels of liver transaminase levels; F41.9 Anxiety disorder, unspecified; F32.9 Major depressive disorder, single episode, unspecified; Z71.6 Tobacco abuse counseling; Z20.822 Contact with and (suspected) exposure to COVID-19; E87.0 Hyperosmolality and hypernatremia; E87.5 Hyperkalemia; F17.210 Nicotine dependence, cigarettes, uncomplicated; R73.9 Hyperglycemia, unspecified; K70.40 Alcoholic hepatic failure without coma; R00.0 Tachycardia, unspecified; K70.10 Alcoholic hepatitis without ascites; F10.229 Alcohol dependence with intoxication, unspecified; K76.0 Fatty (change of) liver, not elsewhere classified
CPT/HCPCS: 36415; 36600; 70030-TC; 70450; 71045; 74150; 83605; 83690; 83735; 84100; 85025; 86704; 86705; 86706; 86850; 86900; 86901; 86920; 87040; 87340; 90937; 93005; A4649; A4663; C1769; C9113; G0378; G0480; J1644; J1815; J1885; J1940; J2060; J2250; J2270; J2405; J3010; J3370; J3411; J3415; J3475; J3480; J3490; J7030; J7050; J7060; J7120; P9016-BL; P9021; Q0162

== ENCOUNTER 2020-10-28 02:00 | Emergency (ER) | payer OTHER ==
[~2020-10-28] VITALS: Ht 172.7 cm; Wt 68.0 kg
[~2020-10-28 02:00] MED LIST changes: +ACID1TAB4 PO; +Folic Acid PO; +PANT40VI PO; +THIA100T13 PO; +VANC500V PO
--- NOTE | 2020-10-28 02:10 | NUR ---
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 Patient has permacath on left chest wall. Placed in room 4a.
[2020-10-28] MEDS ORDERED: MULT-331 PO (02:15)
[2020-10-28] MEDS ORDERED: HYDROMORPHONE 1 MG/1 ML DISP.SYRIN IV ONE ×2 (02:15→04:15)
[2020-10-28] MEDS ORDERED: ONDANSETRON 4 MG/2 ML VIAL IV ONE (02:15)
[2020-10-28 02:54] LABS: BASOPHILS # (AUTO) 0.1 K/uL (0.0-8.0); BASOPHILS % (AUTO) 0.4 % (0.0-2.0); EOSINOPHILS # (AUTO) 0.1 K/uL (0.0-0.7); EOSINOPHILS % (AUTO) 0.5 % (0.0-7.0); HEMATOCRIT 31.3 % (36.7-47.1); HEMOGLOBIN 10.3 g/dL (12.5-16.3); LYMPHOCYTES # (AUTO) 1.9 K/uL (20.0-40.0); LYMPHOCYTES % (AUTO) 8.1 % (20.5-51.5); MEAN CORPUSCULAR HEMOGLOBIN 30.5 uug (23.8-33.4); MEAN CORPUSCULAR HGB CONC 33 g/dL (32.5-36.3); MEAN CORPUSCULAR VOLUME 93.2 fL (73.0-96.2); MONOCYTES # (AUTO) 1.5 K/uL (2.0-10.0); MONOCYTES % (AUTO) 6.2 % (0.0-11.0); NEUTROPHILS # (AUTO) 20.2 K/uL (1.8-8.9); NEUTROPHILS % (AUTO) 84.8 % (38.5-71.5); PLATELET COUNT (AUTO) 424 K/uL (152-348); RED BLOOD CELL COUNT(AUTO) 3.36 MIL/uL (4.06-5.63); WHITE BLOOD COUNT (AUTO) 23.9 K/uL (3.6-10.2)
[2020-10-28] MEDS ORDERED: ONDANSETRON 4 MG/2 ML VIAL ONE (02:55)
[2020-10-28] MEDS ORDERED: HYDROMORPHONE 1 MG/1 ML DISP.SYRIN ONE ×2 (02:55→04:21)
--- NOTE | 2020-10-28 02:56 | NUR ---
Patient out of unit for ct scan via gurny.
--- NOTE | 2020-10-28 03:07 | NUR ---
Patient back from ct scan with no distress noted.
[2020-10-28 03:14] LABS: CREATININE 2.8 mg/dL (0.6-1.3); POTASSIUM 3.2 mmol/L (3.5-5.1)
[2020-10-28 03:16] LABS: BILIRUBIN,DIRECT 0.3 mg/dL (0.0-0.2); BILIRUBIN,TOTAL 0.6 mg/dL (0.2-1.0); TOTAL PROTEIN, SERUM 8.8 g/dL (6.4-8.2)
[2020-10-28 03:17] LABS: MAGNESIUM 1.3 mg/dL (1.8-2.4); PHOSPHOROUS 4.6 mg/dL (2.5-4.9)
[2020-10-28] MEDS ORDERED: METFORMIN HCL 500 MG TABLET PO ONE (03:30)
[2020-10-28] MEDS ORDERED: IV NORMAL SALINE 1000 ML BAG IV ONE (03:30)
[2020-10-28] MEDS ORDERED: POTASSIUM CHLORIDE 20 MEQ TAB.PRT.SR PO ONE ×2 (03:30)
--- NOTE | 2020-10-28 03:35 | NUR ---
Dr Brown speaking with Dr Vargas for consult.
[2020-10-28] MEDS ORDERED: POTASSIUM CHLORIDE 20 MEQ TAB.PRT.SR ONE (03:57)
--- NOTE | 2020-10-28 04:16 | NUR ---
Called [facility] for request to transfer for higher level of care, spoke to Nehemias nurse from the ER who will call surgery MD organizational effectiveness consultant to call Dr Brown back.
[2020-10-28] MEDS ORDERED: IV NORMAL SALINE 250 ML IV ONE (04:22)
[2020-10-28] MEDS ORDERED: IOHEXOL 350 100 ML INFUS..BTL ONE (04:22)
[2020-10-28] MEDS ORDERED: SWABABLE VALVE TRANSFER SET EA MC ONE (04:22)
--- NOTE | 2020-10-28 04:24 | NUR ---
Called [facility] spoke to Carmen who requested facesheet to be fax to .
--- NOTE | 2020-10-28 04:41 | NUR ---
Called [facility]. No bed available at this time.
--- NOTE | 2020-10-28 04:45 | NUR ---
Called [facility] transfer center. No bed available.
--- NOTE | 2020-10-28 04:50 | NUR ---
Called [facility], spoke to Madison who requested facesheet to be faxed to .
--- NOTE | 2020-10-28 05:00 | NUR ---
[facility] contacted, no beds available.
--- NOTE | 2020-10-28 05:15 | NUR ---
Started blood transfusion as ordered by Dr Brown.
--- NOTE | 2020-10-28 05:18 | NUR ---
[facility] transfer center contacted for need of higher level care. Dr Brown is speaking with ER doctor for possible ER to ER transfer.
--- NOTE | 2020-10-28 05:19 | NUR ---
Started unit of FFP as Dr Brown ordered.
--- NOTE | 2020-10-28 05:27 | NUR ---
[facility] ambulance, none available until 7pm.
--- NOTE | 2020-10-28 05:27 | NUR ---
Blood Transfusion and FFP Transfusion started at this time. Vitals documented.
[2020-10-28] MEDS ORDERED: PIPERACILLIN SODIUM/TAZOBACTAM 3.375 G in IV DEXTROSE 5% 50 ML IV ONE (05:30)
[2020-10-28 05:33] LABS: *BILIRUBIN,URIN NEGATIVE (NEGATIVE); *BLOOD, URINE 1+ (NEGATIVE); *CLARITY,URINE CLEAR (CLEAR); *COLOR,URINE YELLOW (YELLOW); *KETONES,URINE TRACE (NEGATIVE); *UROBILINOGEN,URINE 0.2 E.U./dl (NORMAL); LEUKOCYTE ESTERASE ,URINE NEGATIVE (NEGATIVE); NITRITE, URINE NEGATIVE (NEGATIVE); PH,URINE 5.5 (5.0-8.0)
--- NOTE | 2020-10-28 05:35 | NUR ---
Called [facility] who is unable to take patient late afternoon.
[2020-10-28 05:37] LABS: UGLUCOSE 2+ (NEGATIVE)
[2020-10-28 05:40] LABS: BACTERIA,URINE FEW /HPF (NONE SEEN); SQUAMOUS EPITHELIAL CELL,UR FEW /HPF (NONE SEEN); URINE AMORPHOUS URATE FEW /HPF
--- NOTE | 2020-10-28 05:45 | NUR ---
Called [facility] ambulance who is unable to transport patient due to patient's insurance.
--- NOTE | 2020-10-28 05:47 | NUR ---
Called [facility]. No transport available.
--- NOTE | 2020-10-28 05:55 | NUR ---
Called [facility], unable to provide transportation unitl after 1500 today.
--- NOTE | 2020-10-28 06:30 | NUR ---
NURSING TWILL CUTTER, MICHELLE CALLED [facility] AND GOT TICKET #[phone]. WILL CALL BACK WITH ZAN.
--- NOTE | 2020-10-28 06:40 | NUR ---
Patient tolerated FFP with no reaction.
--- NOTE | 2020-10-28 06:47 | NUR ---
Denia from [facility] called back with ETA of 1430.
[2020-10-28 06:49] LABS: HEMATOCRIT 28.3 % (36.7-47.1); HEMOGLOBIN 9.4 g/dL (12.5-16.3)
--- NOTE | 2020-10-28 06:54 | NUR ---
Denia called back from [facility] with New ETA. Patient will be picked up at 1130.
[2020-10-28] MEDS ORDERED: PIPERACILLIN/TAZOBACTAM/D5W 50 ML IV ONE (07:09)
--- NOTE | 2020-10-28 07:30 | NUR ---
Patient is awake, alert, riented x4 in no distress. States pain is minimal at this time. Vital signs stable. Patient aware of pending transfer to [place]. Ambulance to arrive at 1100. Patient on continuous cardiac and BP monitoring. PRBC's running via pump...
--- NOTE | 2020-10-28 08:30 | NUR ---
PRBC's complete. Patient is NPO
--- NOTE | 2020-10-28 08:37 | NUR ---
Spoke to Dr Claire who stated to give second unit of PRBC's. WIll obtain from blood bank
--- NOTE | 2020-10-28 09:10 | NUR ---
PATIENTS INSURANCE COMPANY REP CALLED AND STATED THERE WAS NO AUTHORIZATION FOR TRANSFER. DR GARCIA SPKE TO HER AND STATED PATIENT DEFINETLY NEEDS HIGHER LEVEL OF CARE AND SURGERY. REP STATED SHE WILL TRY TO GET THE AUTHORIZATION ADN CALL BACK [facility]. SHE WULD NOT GIVE ME HER PHONE NUMBER. PATIENT IS AWAKE AND ALERT WITH NO NEW COMPLAINTS. SECOND BLOOD (PRBC) TRANSFUSION STARTED
--- NOTE | 2020-10-28 10:32 | NUR ---
Carol from patients insurance, [employer] called and is verifying if [facility] is accepting and if it is part of network. She spoke to Dr Claire earlier
--- NOTE | 2020-10-28 10:52 | NUR ---
I called [place] transfer center to verify acceptance of this patient. Jazmine in transfer center stated yes, Dr Flanagan accepted the patient from Dr Brown. She gave me the phone number to the ER radio room where Icalled and gave report to Karie BASURTO. I then called Carol at [facility] and she stated to proceed with transfer. Dr Claire verified urgent need for higher level of care.
--- NOTE | 2020-10-28 11:47 | NUR ---
Ambulance [facility] [address] [facility] to transfer patient to [place]. Report given to Instructional Support Specialist Felice. Patient is awake and alert with no complaints. Second transfusion competed. Vital signs stable. [employer] (insurance) notified that patient is leaving soon to [place]. Dr Claire agreed that he needs to leave [facility] due to urgent situation.
== END 2020-10-28 11:58 | disposition short-term general hospital (02) ==
LOC: ER 02:04
DX: K85.81 Other acute pancreatitis with uninfected necrosis (principal); K86.89 Other specified diseases of pancreas; R73.9 Hyperglycemia, unspecified; D64.9 Anemia, unspecified; R00.0 Tachycardia, unspecified; R57.8 Other shock; N17.9 Acute kidney failure, unspecified; E83.42 Hypomagnesemia; I70.0 Atherosclerosis of aorta; E87.1 Hypo-osmolality and hyponatremia; E87.6 Hypokalemia; F10.11 Alcohol abuse, in remission; Z20.822 Contact with and (suspected) exposure to COVID-19; F17.211 Nicotine dependence, cigarettes, in remission; F32.9 Major depressive disorder, single episode, unspecified; F41.9 Anxiety disorder, unspecified; Z79.899 Other long term (current) drug therapy
CPT/HCPCS: 36415; 71045; 74174; 74176; 80048; 80076; 81001; 82140; 83690; 83735; 84100; 85018; 85025; 85730; 86850; 86900; 86901; 86920; 87086; 87426; 93005; 96361; 96365; 96374; 96375; 96376; 99291; 99292; J1170 ×2; J2405; J2543; P9016 ×2; P9017; Q9967; A4663; J7030; J7050; P9021

== ENCOUNTER 2021-11-08 13:08 | Emergency (ER) | payer OTHER ==
[~2021-11-08] VITALS: Ht 172.7 cm; Wt 61.7 kg
[~2021-11-08 13:08] MED LIST changes: -Folic Acid PO; +MULT-331 PO; -VANC500V PO
[2021-11-08] MEDS ORDERED: GLUCOPHAGE PO (13:41)
[2021-11-08] MEDS ORDERED: NALT50TA PO (13:41)
--- NOTE | 2021-11-08 13:55 | NUR ---
Dr Reid at the bedside for MSE.
[2021-11-08] MEDS ORDERED: IV NORMAL SALINE 1000 ML BAG IV ONE ×2 (14:00→17:00)
[2021-11-08 14:21] LABS: HEMATOCRIT 41.9 % (36.7-47.1); MEAN CORPUSCULAR VOLUME 89.3 fL (73.0-96.2); PLATELET COUNT (AUTO) 185 K/uL (152-348)
[2021-11-08] MEDS ORDERED: IOHEXOL 300MG/ML 100 ML INFUS..BTL ONE (14:23)
[2021-11-08] MEDS ORDERED: SWABABLE VALVE TRANSFER SET EA MC ONE (14:23)
[2021-11-08] MEDS ORDERED: IV NORMAL SALINE 250 ML IV ONE (14:23)
[2021-11-08 14:27] LABS: CREATININE 0.7 mg/dL (0.6-1.3); POTASSIUM 4.6 mmol/L (3.5-5.1)
[2021-11-08 14:36] LABS: BILIRUBIN,DIRECT 0.1 mg/dL (0.0-0.2); BILIRUBIN,TOTAL 0.9 mg/dL (0.2-1.0); TOTAL PROTEIN, SERUM 7.5 g/dL (6.4-8.2)
--- NOTE | 2021-11-08 14:39 | NUR ---
Pt resting in bed, speaking on the phone, NAD noted.
--- NOTE | 2021-11-08 16:25 | NUR ---
Pt walked to the bathroom w/ steady gait, states having reduced dizziness, Dr Reid aware.
[2021-11-08] MEDS ORDERED: INSULIN REGULAR, HUMAN 300 UNIT/3 ML VIAL IV ONE (17:00)
[2021-11-08] MEDS ORDERED: INSULIN REGULAR, HUMAN 300 UNIT/3 ML VIAL ONE (17:23)
--- NOTE | 2021-11-08 18:12 | NUR ---
Dinner tray provided, pt states feeling better.
--- NOTE | 2021-11-08 18:58 | NUR ---
Patient discharged to home in stable condition. Written and verbal after care instructions given. Patient verbalizes understanding of instructions. Stressed follow up or return to ER for worsening s/s.
--- NOTE | 2021-11-08 18:58 | NUR ---
IV removed. Catheter intact and site benign. Pressure and 4x4 gauze applied to site. No bleeding noted.
[2021-11-08 18:59] VITALS: BP 108/70
== END 2021-11-08 18:59 | disposition home or self-care (01) ==
LOC: ER 13:08
DX: E13.65 Other specified diabetes mellitus with hyperglycemia (principal); E86.0 Dehydration; F10.11 Alcohol abuse, in remission; Z90.411 Acquired partial absence of pancreas; E89.1 Postprocedural hypoinsulinemia; F32.A Depression, unspecified; F41.9 Anxiety disorder, unspecified; Z79.899 Other long term (current) drug therapy
CPT/HCPCS: 71045; 74177; 80048; 80076; 82009; 82962 ×2; 83605; 83690; 84484; 85025; 85730; 87040 ×2; 93005; 96360; 96361; 96372; 99285; J1815; Q9967; 36415; 70030-TC; A4663; J7030; J7050

== ENCOUNTER 2022-09-24 12:40 | Emergency (ER) | payer OTHER ==
[~2022-09-24] VITALS: Ht 172.7 cm; Wt 60.8 kg
[~2022-09-24 12:40] MED LIST changes: -ACID1TAB4 PO; +GLUCOPHAGE PO; -MULT-331 PO; +NALT50TA PO; -PANT40VI PO; -THIA100T13 PO
[2022-09-24] MEDS ORDERED: METF-442 PO (13:18)
[2022-09-24] MEDS ORDERED: LORAZEPAM 2 MG/1 ML VIAL ONE (13:22)
[2022-09-24] MEDS ORDERED: IV NORMAL SALINE 1000 ML BAG IV ONE (13:30)
[2022-09-24] MEDS ORDERED: ONDANSETRON 4 MG/2 ML VIAL IV ONE (13:30)
[2022-09-24] MEDS ORDERED: LORAZEPAM 2 MG/1 ML VIAL IV ONE (13:30)
[2022-09-24 13:37] LABS: ABG BASE EXCESS -3.8 mmol/L; ABG HCO3 21.4 mmol/L; ABG PCO2 39.7 mmHg (35.0-45.0); ABG PO2 68.9 mmHg (75.0-100.0); ABG TOTAL HEMOGLOBIN 13.4 G/dL (13.5-18.0); COHb 0.9 % (0.5-1.5); MetHb 0.3 % (0.0-1.5); O2Hb 82.8 % (94.0-97.0); VENT MODE Room Air
[2022-09-24 13:38] LABS: HEMATOCRIT 45.2 % (36.7-47.1); MEAN CORPUSCULAR HEMOGLOBIN 30.7 uug (23.8-33.4); MEAN CORPUSCULAR VOLUME 92.3 fL (73.0-96.2); PLATELET COUNT (AUTO) 203 K/uL (152-348)
--- NOTE | 2022-09-24 13:44 | NUR ---
PT IS IN ROOM #2A. DR CANADA AVALUATED THE PT.
[2022-09-24] MEDS ORDERED: ONDANSETRON 4 MG/2 ML VIAL ONE (13:46)
[2022-09-24 13:57] LABS: BILIRUBIN,DIRECT 0.2 mg/dL (0.0-0.2); CREATININE 0.7 mg/dL (0.6-1.3); POTASSIUM 4.2 mmol/L (3.5-5.1); TOTAL PROTEIN, SERUM 8.3 g/dL (6.4-8.2)
[2022-09-24] MEDS ORDERED: IOHEXOL 300MG/ML 100 ML INFUS..BTL ONE (14:29)
[2022-09-24] MEDS ORDERED: SWABABLE VALVE TRANSFER SET EA MC ONE (14:30)
[2022-09-24] MEDS ORDERED: IV NORMAL SALINE 250 ML IV ONE (14:30)
[2022-09-24] MEDS ORDERED: CHLO25CA22 PO (16:54)
[2022-09-24] MEDS ORDERED: ONDA4TAB11 PO (16:54)
--- NOTE | 2022-09-24 17:11 | NUR ---
PT WAS D/C'd TO HOME. D/C INSTRUCTIONS GIVEN TO THE PT BY DR CANADA.
[2022-09-24 17:13] VITALS: BP 131/68
== END 2022-09-24 17:13 | disposition home or self-care (01) ==
LOC: ER 12:40
DX: F10.239 Alcohol dependence with withdrawal, unspecified (principal); Y90.1 Blood alcohol level of 20-39 mg/100 ml; R00.2 Palpitations; Z86.19 Personal history of other infectious and parasitic diseases; F17.200 Nicotine dependence, unspecified, uncomplicated; Z90.411 Acquired partial absence of pancreas; E89.1 Postprocedural hypoinsulinemia; Z79.899 Other long term (current) drug therapy; E13.9 Other specified diabetes mellitus without complications; E87.29 Other acidosis
CPT/HCPCS: 80076; 80048; 82009; 83690; 85025; 84484; 36415; 93005; 71045; 74177; 99291; 96361; 96374; 96375; 83605 ×2; 80320; 36600; J2060; J2405; Q9967; J7040; A4663; G0480

== ENCOUNTER 2022-12-11 18:29 | Emergency (ER) | payer OTHER ==
[~2022-12-11] VITALS: Ht 172.7 cm; Wt 60.8 kg
[~2022-12-11 18:29] MED LIST changes: +CHLO25CA22 PO; -GLUCOPHAGE PO; +METF-442 PO; +ONDA4TAB11 PO
--- NOTE | 2022-12-11 18:56 | NUR ---
[email or web address], medical screening exam in progress
[2022-12-11] MEDS ORDERED: FLAS1KIT2 TP (19:20)
[2022-12-11] MEDS ORDERED: ERTU15TA PO (19:20)
--- NOTE | 2022-12-11 19:29 | NUR ---
Patient discharged to home in stable condition. Written and verbal after care instructions given. Patient verbalizes understanding of instructions. Stressed follow up or return to ER for worsening s/s. Patient walked out wiht steady gait.
[2022-12-11 19:30] VITALS: BP 106/71
== END 2022-12-11 19:31 | disposition home or self-care (01) ==
LOC: ER 18:33
DX: E11.9 Type 2 diabetes mellitus without complications (principal); F17.210 Nicotine dependence, cigarettes, uncomplicated; Z76.0 Encounter for issue of repeat prescription; Z79.899 Other long term (current) drug therapy
CPT/HCPCS: A4663

== ENCOUNTER 2024-02-26 19:33 | Inpatient (IN) | payer OTHER ==
[~2024-02-26] VITALS: Ht 172.7 cm; Wt 62.1 kg
[~2024-02-26 19:33] MED LIST changes: +ERTU15TA PO; +FLAS1KIT2 TP
[2024-02-26] MEDS ORDERED: FAMOTIDINE. 20 MG/2 ML VIAL IV ONE ×2 (20:30→20:31)
[2024-02-26] MEDS ORDERED: ONDANSETRON 4 MG/2 ML VIAL ONE (20:30)
[2024-02-26 20:43] LABS: *CLARITY,URINE CLEAR (CLEAR); *COLOR,URINE YELLOW (YELLOW); *KETONES,URINE 4+ (NEGATIVE); *PROTEIN,URINE 1+ (NEGATIVE); *UROBILINOGEN,URINE 0.2 E.U./dl (NORMAL); LEUKOCYTE ESTERASE ,URINE NEGATIVE (NEGATIVE); NITRITE, URINE NEGATIVE (NEGATIVE); PH,URINE 5.5 (5.0-8.0)
[2024-02-26 20:44] LABS: *BILIRUBIN,URIN 1+ (NEGATIVE); *BLOOD, URINE NEGATIVE (NEGATIVE); UGLUCOSE 1+ (NEGATIVE)
[2024-02-26 20:45] LABS: RBC,URINE 0-3 /HPF (0-3); WBC,URINE 0-3 /HPF (0-3)
[2024-02-26 20:51] LABS: MEAN CORPUSCULAR HEMOGLOBIN 30.9 uug (23.8-33.4); MEAN CORPUSCULAR HGB CONC 33 g/dL (32.5-36.3); MEAN CORPUSCULAR VOLUME 93.2 fL (73.0-96.2)
[2024-02-26] MEDS: FAMOTIDINE. 20 MG/2 ML VIAL IV ONE (20:56)
[2024-02-26] MEDS: ONDANSETRON 4 MG/2 ML VIAL IV ONE (20:56)
[2024-02-26] MEDS: IV NORMAL SALINE 1000 ML BAG IV ONE (20:56)
[2024-02-26] MEDS: LORAZEPAM 2 MG/1 ML VIAL IV ONE (20:56)
[2024-02-26 21:13] LABS: BASOPHILS # (AUTO) 0.1 K/UL (0.0-0.2); BASOPHILS % (AUTO) 1.1 % (0.0-2.0); EOSINOPHILS % (AUTO) 0.3 % (0.0-7.0); HEMATOCRIT 46.9 % (36.7-47.1); HEMOGLOBIN 15.5 g/dL (12.5-16.3); LYMPHOCYTES # (AUTO) 0.6 K/uL (0.8-4.8); LYMPHOCYTES % (AUTO) 7.3 % (20.5-51.5); MONOCYTES # (AUTO) 0.9 K/uL (0.1-1.30); MONOCYTES % (AUTO) 11.3 % (0.0-11.0); NEUTROPHILS # (AUTO) 6.1 K/uL (1.8-8.9); PLATELET COUNT (AUTO) 239 K/uL (152-348); RED BLOOD CELL COUNT(AUTO) 5.03 MIL/uL (4.06-5.63); RED CELL DISTRIBUTION WIDTH 13.6 % (12.1-16.2); WHITE BLOOD COUNT (AUTO) 7.6 K/uL (3.6-10.2)
[2024-02-26 21:14] LABS: DIFFERENTIAL COMMENT 1
[2024-02-26 21:16] LABS: CALCIUM 9.8 mg/dL (8.5-10.1); CREATININE 1.1 mg/dL (0.6-1.3); POTASSIUM 3.7 mmol/L (3.5-5.1)
[2024-02-26 21:27] LABS: ALBUMIN 4.1 g/dL (3.4-5.0); BILIRUBIN,DIRECT 0.2 mg/dL (0.0-0.2)
[2024-02-26 22:15] LABS: SITE, VBG VBG - N/A; VBG AaDO2 91.9 mmHg; VBG BASE EXCESS -12.2 mmol/L (-3-3); VBG MetHb 0.3 % (0.0-0.5); VBG O2HB 90.8 %; VBG PCO2 24.3 mmHg (41.0-54.0); VBG PH 7.312 (7.310-7.450); VBG PO2 66.2 mmHg (25.0-35.0); VBG TOTAL HEMOGLOBIN 14.2 G/dL (12.0-16.0)
[2024-02-26] MEDS: [UNRECOGNIZED DRUG - OTHER] IV ONE (22:50)
[2024-02-26] MEDS: DEXTROSE IV ONE (22:50)
[2024-02-26 23:27] LABS: ETHANOL < 3 MG/DL (0-10)
[2024-02-26] MEDS ORDERED: POTASSIUM CHLORIDE 20 MEQ TAB.PRT.SR ONE (23:48)
[2024-02-26] MEDS: POTASSIUM CHLORIDE 20 MEQ TAB.PRT.SR PO ONE (23:51)
[2024-02-26 23:59] LABS: MAGNESIUM 1.9 mg/dL (1.8-2.4); PHOSPHOROUS 3.8 mg/dL (2.5-4.9)
[2024-02-27] VITALS (13 sets, daily range): BP systolic 92–112; BP diastolic 61–80; TEMP 98.5–99.5; O2SAT 94–98
[2024-02-27] MEDS ORDERED: INSULIN REGULAR, HUMAN 300 UNIT/3 ML VIAL ONE (00:25)
[2024-02-27] MEDS: INSULIN REGULAR, HUMAN 300 UNIT/3 ML VIAL IV ONE (00:35)
[2024-02-27 02:33] LABS: POTASSIUM 4.2 mmol/L (3.5-5.1)
[2024-02-27 02:39] LABS: CALCIUM 8.4 mg/dL (8.5-10.1)
[2024-02-27] MEDS ORDERED: MAGNESIUM HYDROXIDE 30 ML LIQUID UDC PO PRN (03:30)
[2024-02-27] MEDS ORDERED: ONDANSETRON 4 MG/2 ML VIAL IV PRN (03:30)
[2024-02-27] MEDS ORDERED: ACETAMINOPHEN 325 MG TABLET PO PRN (03:30)
[2024-02-27] MEDS ORDERED: REMEDY ESSENTIAL ZINC PASTE 113 GM TP PRN (03:30)
[2024-02-27] MEDS ORDERED: DEXTROSE 50% 50 ML DISP.SYRIN IV PRN ×2 (03:45→15:00)
[2024-02-27] MEDS ORDERED: INSULIN REGULAR, HUMAN 300 UNITS/3 ML VIAL SQ PRN (03:45)
[2024-02-27] MEDS: LORAZEPAM 2 MG/1 ML VIAL IV ONE (03:55)
[2024-02-27] MEDS: IV D5 1/2 NS 1000 ML 1,000 ML IV SCH ×2 (05:22→08:45)
[2024-02-27] MEDS: PANTOPRAZOLE SODIUM 40 MG TABLET.DR PO SCH (06:03)
[2024-02-27] MEDS: BLOOD SUGAR DIAGNOSTIC 1 EACH STRIP VI SCH ×3 (06:39→15:53)
[2024-02-27 06:43] LABS: ALBUMIN 3.3 g/dL (3.4-5.0); BILIRUBIN,DIRECT 0.2 mg/dL (0.0-0.2); BILIRUBIN,TOTAL 0.9 mg/dL (0.2-1.0); CALCIUM 8.9 mg/dL (8.5-10.1); MAGNESIUM 1.7 mg/dL (1.8-2.4); PHOSPHOROUS 2.7 mg/dL (2.5-4.9); TOTAL PROTEIN, SERUM 7.7 g/dL (6.4-8.2)
[2024-02-27 06:50] LABS: THYROID STIMULATING HORMONE 0.514 mIU/mL (0.358-3.740)
[2024-02-27 06:58] LABS: BASOPHILS % (AUTO) 0.4 % (0.0-2.0); EOSINOPHILS # (AUTO) 0.1 K/uL (0.0-0.7); EOSINOPHILS % (AUTO) 1.5 % (0.0-7.0); HEMATOCRIT 41.7 % (36.7-47.1); LYMPHOCYTES # (AUTO) 0.6 K/uL (0.8-4.8); LYMPHOCYTES % (AUTO) 14.8 % (20.5-51.5); MEAN CORPUSCULAR HEMOGLOBIN 31.5 uug (23.8-33.4); MEAN CORPUSCULAR HGB CONC 34 g/dL (32.5-36.3); MEAN CORPUSCULAR VOLUME 93.5 fL (73.0-96.2); MONOCYTES # (AUTO) 0.8 K/uL (0.1-1.30); MONOCYTES % (AUTO) 19.2 % (0.0-11.0); NEUTROPHILS # (AUTO) 2.7 K/uL (1.8-8.9); NEUTROPHILS % (AUTO) 64.1 % (38.5-71.5); PLATELET COUNT (AUTO) 214 K/uL (152-348); RED BLOOD CELL COUNT(AUTO) 4.46 MIL/uL (4.06-5.63); RED CELL DISTRIBUTION WIDTH 13.8 % (12.1-16.2); WHITE BLOOD COUNT (AUTO) 4.2 K/uL (3.6-10.2)
[2024-02-27 06:59] LABS: DIFFERENTIAL COMMENT 1
[2024-02-27] MEDS: ENOXAPARIN SODIUM 40 MG/0.4 ML DISP.SYRIN SQ SCH (08:22)
[2024-02-27] MEDS: INSULIN REGULAR, HUMAN 300 UNIT/3 ML VIAL SQ PRN ×2 (08:24→20:10)
[2024-02-27 09:45] LABS: ALBUMIN 3.2 g/dL (3.4-5.0); BILIRUBIN,TOTAL 0.9 mg/dL (0.2-1.0); POTASSIUM 3.5 mmol/L (3.5-5.1); TOTAL PROTEIN, SERUM 7.5 g/dL (6.4-8.2)
[2024-02-27] MEDS ORDERED: LORAZEPAM 2 MG/1 ML VIAL IV PRN (09:45)
[2024-02-27] MEDS ORDERED: hydrALAZINE HCL 20 MG/1 ML VIAL IV PRN (09:45)
[2024-02-27] MEDS ORDERED: MORPHINE SULFATE 2 MG/1 ML DISP.SYRIN IVP PRN (09:45)
[2024-02-27 09:52] LABS: CALCIUM 8.9 mg/dL (8.5-10.1)
[2024-02-27 10:20] LABS: BAND % (MANUAL) 10 % (0-10); LYMPHOCYTES % (MANUAL) 17 % (20-40); MONOCYTES % (MANUAL) 18 % (2-10); NEUTROPHILS % (MANUAL) 55 % (42-75)
[2024-02-27 10:21] LABS: ANISOCYTOSIS 1+; PLATELET ESTIMATE ADEQUATE
[2024-02-27] MEDS: INSULIN REGULAR, HUMAN 100 UNIT in IV NORMAL SALINE 99 ML IV SCH (10:30)
[2024-02-27] MEDS: CHLORDIAZEPOXIDE HCL 25 MG CAPSULE PO SCH (10:37)
[2024-02-27] MEDS: CEFEPIME HCL 1 G in IV DEXTROSE 5% 50 ML IV SCH (10:59)
[2024-02-27] MEDS: POTASSIUM CHLORIDE 50 ML IV PRN (13:01)
[2024-02-27 13:17] LABS: CALCIUM 8.8 mg/dL (8.5-10.1); CREATININE 0.9 mg/dL (0.6-1.3)
[2024-02-27 13:22] LABS: ALBUMIN 2.9 g/dL (3.4-5.0); BILIRUBIN,TOTAL 0.6 mg/dL (0.2-1.0)
[2024-02-27] MEDS: MAGNESIUM OXIDE 400 MG TABLET PO ONE (14:19)
[2024-02-27] MEDS ORDERED: POTASSIUM CHLORIDE 50 ML IV PRN (15:30)
[2024-02-27] MEDS: POTASSIUM CHLORIDE 10 MEQ, LIDOCAINE-MPF 1% 1 ML in IV DEXTROSE 5% 100 ML IV SCH (15:43)
[2024-02-27] MEDS ORDERED: HEPARIN SODIUM,PORCINE 5,000 UNITS/ML VIAL SQ SCH (17:00)
[2024-02-27] MEDS: HEPARIN SODIUM,PORCINE 5,000 UNITS/ML VIAL SQ SCH (17:07)
[2024-02-27] MEDS: INSULIN GLARGINE,HUM 300 UNITS/3 ML CARTRIDGE SQ SCH (20:10)
[2024-02-28 06:15] VITALS: BP 94/63; TEMP 98.4; O2SAT 99
[2024-02-28 06:48] LABS: CALCIUM 9.4 mg/dL (8.5-10.1); CREATININE 0.8 mg/dL (0.6-1.3); POTASSIUM 3.5 mmol/L (3.5-5.1)
[2024-02-28 06:54] LABS: ALBUMIN 2.8 g/dL (3.4-5.0); BILIRUBIN,TOTAL 0.6 mg/dL (0.2-1.0); TOTAL PROTEIN, SERUM 6.9 g/dL (6.4-8.2)
[2024-02-28 07:11] VITALS: BP 95/62; TEMP 97.5; O2SAT 98
[2024-02-28 08:34] LABS: BASOPHILS % (AUTO) 0.4 % (0.0-2.0); EOSINOPHILS # (AUTO) 0.1 K/uL (0.0-0.7); HEMATOCRIT 40.7 % (36.7-47.1); HEMOGLOBIN 13.7 g/dL (12.5-16.3); LYMPHOCYTES # (AUTO) 0.7 K/uL (0.8-4.8); LYMPHOCYTES % (AUTO) 20.6 % (20.5-51.5); MEAN CORPUSCULAR HEMOGLOBIN 31.2 uug (23.8-33.4); MEAN CORPUSCULAR HGB CONC 34 g/dL (32.5-36.3); MEAN CORPUSCULAR VOLUME 92.5 fL (73.0-96.2); MONOCYTES # (AUTO) 0.6 K/uL (0.1-1.30); MONOCYTES % (AUTO) 15.7 % (0.0-11.0); NEUTROPHILS # (AUTO) 2.2 K/uL (1.8-8.9); NEUTROPHILS % (AUTO) 60.3 % (38.5-71.5); PLATELET COUNT (AUTO) 176 K/uL (152-348); RED CELL DISTRIBUTION WIDTH 13.9 % (12.1-16.2); WHITE BLOOD COUNT (AUTO) 3.6 K/uL (3.6-10.2)
[2024-02-28 08:38] LABS: DIFFERENTIAL COMMENT 1
[2024-02-28] MEDS ORDERED: DEXTROSE 50% 50 ML DISP.SYRIN IV PRN (10:52)
[2024-02-28 11:22] VITALS: BP 89/60; TEMP 97.7; O2SAT 96
[2024-02-28] MEDS: BLOOD SUGAR DIAGNOSTIC 1 EACH STRIP VI SCH (12:02)
[2024-02-28] MEDS: INSULIN REGULAR, HUMAN 300 UNIT/3 ML VIAL SQ PRN (12:47)
[2024-02-28 15:12] LABS: NEUTROPHILS % (MANUAL) 0 % (42-75)
[2024-02-28 15:13] LABS: LYMPHOCYTES % (MANUAL) 0 % (20-40)
[2024-02-28 15:44] VITALS: BP 93/59; TEMP 98.1; O2SAT 97
[2024-02-28 19:59] VITALS: BP 91/62; TEMP 97.5; O2SAT 98
[2024-02-29 00:10] VITALS: BP 86/57; TEMP 98.3; O2SAT 97
[2024-02-29 04:20] VITALS: BP 86/59; TEMP 97.4; O2SAT 98
[2024-02-29 06:30] VITALS: BP 90/54; O2SAT 98
[2024-02-29 07:38] LABS: BASOPHILS % (AUTO) 0.5 % (0.0-2.0); EOSINOPHILS % (AUTO) 1.3 % (0.0-7.0); HEMATOCRIT 38.5 % (36.7-47.1); LYMPHOCYTES # (AUTO) 0.9 K/uL (0.8-4.8); LYMPHOCYTES % (AUTO) 32.2 % (20.5-51.5); MEAN CORPUSCULAR HEMOGLOBIN 31.6 uug (23.8-33.4); MEAN CORPUSCULAR HGB CONC 34 g/dL (32.5-36.3); MEAN CORPUSCULAR VOLUME 93.3 fL (73.0-96.2); MONOCYTES # (AUTO) 0.4 K/uL (0.1-1.30); MONOCYTES % (AUTO) 15.3 % (0.0-11.0); NEUTROPHILS # (AUTO) 1.5 K/uL (1.8-8.9); NEUTROPHILS % (AUTO) 50.7 % (38.5-71.5); PLATELET COUNT (AUTO) 174 K/uL (152-348); RED BLOOD CELL COUNT(AUTO) 4.13 MIL/uL (4.06-5.63); WHITE BLOOD COUNT (AUTO) 2.9 K/uL (3.6-10.2)
[2024-02-29 07:40] LABS: DIFFERENTIAL COMMENT 1
[2024-02-29 07:58] LABS: CALCIUM 9.1 mg/dL (8.5-10.1); CARBON DIOXIDE 27 mmol/L (21-32); CHLORIDE 100 mmol/L (98-107); CREATININE 0.6 mg/dL (0.6-1.3); GLUCOSE 252 mg/dL (74-106); POTASSIUM 3.4 mmol/L (3.5-5.1); SODIUM SERUM 140 mmol/L (136-145); UREA NITROGEN, BLOOD 8 mg/dL (7-18)
[2024-02-29 08:00] VITALS: BP 91/60; TEMP 97.3; O2SAT 98
[2024-02-29 08:04] LABS: ALANINE AMINOTRANSFERASE 32 U/L (16-63); ALBUMIN 2.6 g/dL (3.4-5.0); ALKALINE PHOSPHATASE 100 U/L (50-136); ASPARTATE AMINOTRANSFERASE 10 U/L (15-37); BILIRUBIN,TOTAL 0.4 mg/dL (0.2-1.0); TOTAL PROTEIN, SERUM 6.6 g/dL (6.4-8.2)
[2024-02-29] MEDS ORDERED: CHLO25CA22 PO (08:56)
[2024-02-29] MEDS ORDERED: ESCITALOPRAM OXALATE 10 MG TABLET PO SCH (09:30)
[2024-02-29] MEDS ORDERED: ZOLPIDEM 5 MG TABLET PO PRN (09:30)
[2024-02-29] MEDS ORDERED: POTASSIUM CHLORIDE 20 MEQ TAB.PRT.SR PO ONE (10:00)
[2024-02-29 11:01] VITALS: BP 135/59; TEMP 97.6; O2SAT 97
[2024-02-29 12:49] LABS: BAND % (MANUAL) 6 % (0-10); LYMPHOCYTES % (MANUAL) 38 % (20-40); MONOCYTES % (MANUAL) 10 % (2-10); NEUTROPHILS % (MANUAL) 46 % (42-75)
[2024-02-29 12:50] LABS: ANISOCYTOSIS 1+; PLATELET ESTIMATE ADEQUATE
== END 2024-02-29 09:45 | disposition home or self-care (01) | DRG 420 ==
LOC: ER 19:41 → TELE3 02-27 03:56 → CCU 02-27 09:11 → TELE3 02-27 18:53
PROVIDERS: ADMIT Nurse Practitioner Family; ATTEND Internal Medicine
DX: E11.10 Type 2 diabetes mellitus with ketoacidosis without coma (principal); A41.9 Sepsis, unspecified organism; E44.1 Mild protein-calorie malnutrition; F10.139 Alcohol abuse with withdrawal, unspecified; Y90.0 Blood alcohol level of less than 20 mg/100 ml; E88.09 Other disorders of plasma-protein metabolism, not elsewhere classified; F33.2 Major depressive disorder, recurrent severe without psychotic features; Z90.411 Acquired partial absence of pancreas; F41.9 Anxiety disorder, unspecified; E83.42 Hypomagnesemia; Z79.84 Long term (current) use of oral hypoglycemic drugs; Z90.49 Acquired absence of other specified parts of digestive tract; Z86.19 Personal history of other infectious and parasitic diseases; Z79.899 Other long term (current) drug therapy; Z81.1 Family history of alcohol abuse and dependence
CPT/HCPCS: 36415; 70030-TC; 83605; 83690; 83735; 84100; 84443; 85025; 85730; 87040; A4606; A4663; G0378; G0480; J0692; J1644; J1650; J1815; J2001; J2060; J2405; J3480; J3490; J7040

== ENCOUNTER 2024-07-02 16:55 | Emergency (ER) | payer OTHER ==
[~2024-07-02] VITALS: Ht 172.7 cm; Wt 63.5 kg
[~2024-07-02 16:55] MED LIST changes: -NALT50TA PO; -ONDA4TAB11 PO
[2024-07-02] MEDS ORDERED: CHLO25CA22 PO (18:27)
[2024-07-02] MEDS ORDERED: ONDA4TAB5 PO (18:28)
[2024-07-02 18:40] VITALS: BP 122/98; O2SAT 99
[2024-07-03] MEDS ORDERED: CHLO25CA22 PO (16:15)
== END 2024-07-02 18:42 | disposition home or self-care (01) ==
LOC: ER 16:55
DX: F10.229 Alcohol dependence with intoxication, unspecified (principal); E11.65 Type 2 diabetes mellitus with hyperglycemia; F17.200 Nicotine dependence, unspecified, uncomplicated; F41.9 Anxiety disorder, unspecified; F32.A Depression, unspecified; Z79.84 Long term (current) use of oral hypoglycemic drugs; Z79.899 Other long term (current) drug therapy; Z90.411 Acquired partial absence of pancreas; Z90.49 Acquired absence of other specified parts of digestive tract; Y90.9 Presence of alcohol in blood, level not specified
CPT/HCPCS: A4606; A4663

== ENCOUNTER 2024-09-19 17:37 | Inpatient (IN) | payer OTHER ==
[~2024-09-19] VITALS: Ht 175.3 cm; Wt 63.5 kg
[~2024-09-19 17:37] MED LIST changes: +ONDA4TAB5 PO
[2024-09-19 18:49] LABS: BASOPHILS % (AUTO) 0.6 % (0.0-2.0); EOSINOPHILS % (AUTO) 0.5 % (0.0-7.0); HEMATOCRIT 39.9 % (36.7-47.1); HEMOGLOBIN 14.1 g/dL (12.5-16.3); LYMPHOCYTES # (AUTO) 1.1 K/uL (0.8-4.8); LYMPHOCYTES % (AUTO) 19.7 % (20.5-51.5); MEAN CORPUSCULAR HGB CONC 35 g/dL (32.5-36.3); MEAN CORPUSCULAR VOLUME 93.8 fL (73.0-96.2); MONOCYTES # (AUTO) 0.7 K/uL (0.1-1.30); MONOCYTES % (AUTO) 11.5 % (0.0-11.0); NEUTROPHILS # (AUTO) 3.9 K/uL (1.8-8.9); NEUTROPHILS % (AUTO) 67.7 % (38.5-71.5); PLATELET COUNT (AUTO) 181 K/uL (152-348); RED BLOOD CELL COUNT(AUTO) 4.26 MIL/uL (4.06-5.63); RED CELL DISTRIBUTION WIDTH 13.4 % (12.1-16.2); WHITE BLOOD COUNT (AUTO) 5.8 K/uL (3.6-10.2)
[2024-09-19 18:58] LABS: DIFFERENTIAL COMMENT 1
[2024-09-19 19:04] LABS: BILIRUBIN,DIRECT 0.1 mg/dL (0.0-0.2); CALCIUM 8.8 mg/dL (8.5-10.1); TOTAL PROTEIN, SERUM 7.8 g/dL (6.4-8.2)
[2024-09-19] MEDS ORDERED: KETOROLAC TROMETHAMINE 15 MG INJ ONE (19:08)
[2024-09-19] MEDS ORDERED: METOCLOPRAMIDE HCL 10 MG/2 ML VIAL ONE (19:08)
[2024-09-19 19:14] LABS: POTASSIUM 2.4 mmol/L (3.5-5.1)
[2024-09-19] MEDS: KETOROLAC TROMETHAMINE 15 MG INJ IVP ONE (19:16)
[2024-09-19] MEDS: METOCLOPRAMIDE HCL 10 MG/2 ML VIAL IV ONE (19:16)
[2024-09-19] MEDS: IV NORMAL SALINE 1000 ML BAG IV ONE (19:16)
[2024-09-19 19:44] LABS: *BILIRUBIN,URIN NEGATIVE (NEGATIVE); *CLARITY,URINE CLEAR (CLEAR); *COLOR,URINE YELLOW (YELLOW); *KETONES,URINE 4+ (NEGATIVE); *PROTEIN,URINE 1+ (NEGATIVE); *UROBILINOGEN,URINE 0.2 E.U./dl (NORMAL); LEUKOCYTE ESTERASE ,URINE NEGATIVE (NEGATIVE); NITRITE, URINE NEGATIVE (NEGATIVE); UGLUCOSE 2+ (NEGATIVE)
[2024-09-19 19:46] LABS: *BLOOD, URINE TRACE (NEGATIVE)
[2024-09-19 19:49] LABS: BACTERIA,URINE NONE SEEN /HPF (NONE SEEN); RBC,URINE 0-3 /HPF (0-3); SQUAMOUS EPITHELIAL CELL,UR NONE SEEN /HPF (NONE SEEN); WBC,URINE NONE SEEN /HPF (0-3)
[2024-09-19 19:50] LABS: MUCUS,URINE FEW /LPF (0-FEW)
[2024-09-19 19:59] LABS: AMMONIA < 10 umol/L (11-32)
[2024-09-19] MEDS ORDERED: RABIES VACCINE (PCEC)/PF 2.5 UNIT ML IM ONE (20:01)
[2024-09-19] MEDS: RABIES VACCINE (PCEC)/PF 2.5 UNIT ML IM ONE (20:10)
[2024-09-19 20:18] LABS: LIPASE 44 U/L (16-77)
[2024-09-19] MEDS ORDERED: IV NS + KCL 40 MEQ 1000 ML BAG 1,000 ML IV ONE (22:07)
[2024-09-19] MEDS: IV NS + KCL 40 MEQ 1000 ML BAG 1,000 ML IV PRN (22:10)
[2024-09-19] MEDS ORDERED: ONDANSETRON 4 MG/2 ML VIAL IV PRN (22:45)
[2024-09-19] MEDS ORDERED: REMEDY ESSENTIAL ZINC PASTE 113 GM TP PRN (22:45)
[2024-09-19] MEDS ORDERED: MAGNESIUM HYDROXIDE 30 ML LIQUID UDC PO PRN (22:45)
[2024-09-19] MEDS ORDERED: INSULIN REGULAR, HUMAN 100 UNIT in IV NORMAL SALINE 99 ML IV PRN (22:45)
[2024-09-20] MEDS ORDERED: INSULIN REGULAR, HUMAN 1000 UNIT/10 ML VIAL ONE (01:59)
[2024-09-20 03:24] LABS: CALCIUM 7.8 mg/dL (8.5-10.1); CREATININE 0.8 mg/dL (0.6-1.3)
[2024-09-20 03:45] LABS: POTASSIUM 2.6 mmol/L (3.5-5.1)
[2024-09-20] MEDS: BLOOD SUGAR DIAGNOSTIC 1 EACH STRIP VI SCH ×2 (04:00→12:24)
[2024-09-20] MEDS ORDERED: POTASSIUM CHLORIDE 20 MEQ TAB.PRT.SR ONE (04:30)
[2024-09-20] MEDS ORDERED: POTASSIUM CHLORIDE 200 ML ONE (04:30)
[2024-09-20] MEDS: POTASSIUM CHLORIDE 50 ML IV SCH (05:03)
[2024-09-20] MEDS: POTASSIUM CHLORIDE 20 MEQ TAB.PRT.SR PO ONE (05:03)
[2024-09-20 07:30] LABS: BASOPHILS % (AUTO) 0.3 % (0.0-2.0); EOSINOPHILS # (AUTO) 0.1 K/uL (0.0-0.7); EOSINOPHILS % (AUTO) 1.4 % (0.0-7.0); HEMATOCRIT 34.8 % (36.7-47.1); HEMOGLOBIN 12.6 g/dL (12.5-16.3); LYMPHOCYTES # (AUTO) 0.9 K/uL (0.8-4.8); LYMPHOCYTES % (AUTO) 19.5 % (20.5-51.5); MEAN CORPUSCULAR HEMOGLOBIN 33.3 uug (23.8-33.4); MEAN CORPUSCULAR HGB CONC 36 g/dL (32.5-36.3); MEAN CORPUSCULAR VOLUME 91.7 fL (73.0-96.2); MONOCYTES # (AUTO) 0.6 K/uL (0.1-1.30); MONOCYTES % (AUTO) 13.4 % (0.0-11.0); NEUTROPHILS # (AUTO) 3.1 K/uL (1.8-8.9); NEUTROPHILS % (AUTO) 65.4 % (38.5-71.5); PLATELET COUNT (AUTO) 154 K/uL (152-348); RED CELL DISTRIBUTION WIDTH 13.5 % (12.1-16.2); WHITE BLOOD COUNT (AUTO) 4.8 K/uL (3.6-10.2)
[2024-09-20 07:45] LABS: CALCIUM 8.2 mg/dL (8.5-10.1); CREATININE 0.8 mg/dL (0.6-1.3); MAGNESIUM 2.1 mg/dL (1.8-2.4)
[2024-09-20 08:48] LABS: DIFFERENTIAL COMMENT 1
[2024-09-20 08:56] LABS: POTASSIUM 2.6 mmol/L (3.5-5.1)
[2024-09-20] MEDS ORDERED: PANTOPRAZOLE SODIUM 40 MG VIAL ONE (09:11)
[2024-09-20] MEDS ORDERED: ENOXAPARIN SODIUM 40 MG/0.4 ML DISP.SYRIN SQ ONE (09:11)
[2024-09-20] MEDS: PANTOPRAZOLE SODIUM 40 MG VIAL IV SCH (09:16)
[2024-09-20] MEDS: ENOXAPARIN SODIUM 40 MG/0.4 ML DISP.SYRIN SQ SCH (09:17)
[2024-09-20] MEDS ORDERED: INSULIN REGULAR, HUMAN 300 UNITS/3 ML VIAL SQ PRN (09:30)
[2024-09-20] MEDS ORDERED: DEXTROSE 50% 50 ML DISP.SYRIN IV PRN (09:30)
[2024-09-20 09:33] LABS: ABG BASE EXCESS -9.9 mmol/L (-2.0-3.0); ABG HCO3 14.2 mmol/L (21.0-28.0); ABG PO2 112.1 mmHg (83.0-108.0); ABG SITE LEFT RADIAL; ABG TOTAL HEMOGLOBIN 13.6 G/dL (13.5-17.5); AaDO2 97.9 mmHg; COHb 0.5 % (0.5-1.5); MetHb 0.1 % (0.0-1.5); O2Hb 97.4 % (94.0-98.0)
[2024-09-20] MEDS: IV D5W-0.45% NS +20 KCL 1,000 ML IV PRN (09:59)
[2024-09-20] MEDS ORDERED: POTASSIUM BICARBONATE/CIT AC 25 MEQ TABLET.EFF ONE (10:02)
[2024-09-20] MEDS: POTASSIUM BICARBONATE/CIT AC 25 MEQ TABLET.EFF PO ONE (10:33)
[2024-09-20] MEDS ORDERED: ESCI10TA PO (10:55)
[2024-09-20] MEDS: INSULIN REGULAR, HUMAN 1000 UNIT/10 ML VIAL SQ PRN (12:28)
[2024-09-20 12:38] VITALS: BP 109/73; TEMP 97.9; O2SAT 97
[2024-09-20 16:00] VITALS: BP 111/78; TEMP 97.6; O2SAT 97
[2024-09-20] MEDS: NEUTRA PHOS PACKET PO ONE (16:43)
[2024-09-20] MEDS: METFORMIN HCL 500 MG TABLET PO SCH (19:29)
[2024-09-20 20:00] VITALS: BP 107/71; TEMP 97.7; O2SAT 99
[2024-09-20] MEDS: TEMAZEPAM 7.5 MG CAPSULE PO PRN (21:22)
[2024-09-21 00:17] VITALS: BP 101/62; TEMP 97.9; O2SAT 98
[2024-09-21 06:11] VITALS: BP 102/64; TEMP 97.6; O2SAT 98
[2024-09-21 07:42] LABS: BASOPHILS % (AUTO) 0.4 % (0.0-2.0); EOSINOPHILS % (AUTO) 1.1 % (0.0-7.0); HEMATOCRIT 37.2 % (36.7-47.1); HEMOGLOBIN 13.5 g/dL (12.5-16.3); LYMPHOCYTES # (AUTO) 0.9 K/uL (0.8-4.8); LYMPHOCYTES % (AUTO) 24.8 % (20.5-51.5); MEAN CORPUSCULAR HEMOGLOBIN 33.5 uug (23.8-33.4); MEAN CORPUSCULAR HGB CONC 36 g/dL (32.5-36.3); MEAN CORPUSCULAR VOLUME 92.3 fL (73.0-96.2); MONOCYTES # (AUTO) 0.4 K/uL (0.1-1.30); MONOCYTES % (AUTO) 12.6 % (0.0-11.0); NEUTROPHILS # (AUTO) 2.2 K/uL (1.8-8.9); NEUTROPHILS % (AUTO) 61.1 % (38.5-71.5); PLATELET COUNT (AUTO) 187 K/uL (152-348); RED BLOOD CELL COUNT(AUTO) 4.03 MIL/uL (4.06-5.63); RED CELL DISTRIBUTION WIDTH 13.1 % (12.1-16.2); WHITE BLOOD COUNT (AUTO) 3.5 K/uL (3.6-10.2)
[2024-09-21 07:43] VITALS: BP 96/58; TEMP 98.2; O2SAT 100
[2024-09-21 07:51] LABS: DIFFERENTIAL COMMENT 1
[2024-09-21 07:52] LABS: CALCIUM 8.8 mg/dL (8.5-10.1); CREATININE 0.8 mg/dL (0.6-1.3); POTASSIUM 3.4 mmol/L (3.5-5.1)
[2024-09-21 07:57] LABS: PHOSPHOROUS 1.2 mg/dL (2.5-4.9)
[2024-09-21] MEDS: ACETAMINOPHEN 325 MG TABLET PO PRN (08:37)
[2024-09-21] MEDS: ESCITALOPRAM OXALATE 10 MG TABLET PO SCH (08:41)
[2024-09-21] MEDS ORDERED: Medication Not On Formulary EA (Ertugliflozin Pidolate (Steglatro) 15 MG) PO SCH (09:00)
[2024-09-21 10:59] VITALS: BP 126/88; TEMP 97.6; O2SAT 98
[2024-09-21] MEDS ORDERED: POTASSIUM CHLORIDE 20 MEQ TAB.PRT.SR PO ONE (12:00)
[2024-09-21] MEDS: SODIUM PHOSPHATE MM 15 MMOL in IV NORMAL SALINE 250 ML IV ONE (14:20)
[2024-09-21 15:06] VITALS: BP 103/67; TEMP 98.4; O2SAT 97
[2024-09-21] MEDS ORDERED: NICO-625 TP (16:53)
[2024-09-22] MEDS ORDERED: PANTOPRAZOLE SODIUM 40 MG TABLET.DR PO SCH (07:00)
== END 2024-09-21 18:40 | disposition home or self-care (01) | DRG 425 ==
LOC: ER 17:37 → TRANSITION 22:30 → TELE3 09-20 11:26
PROVIDERS: ADMIT Student in an Organized Health Care Education/Training Program; ATTEND Student in an Organized Health Care Education/Training Program
DX: E87.6 Hypokalemia (principal); E11.10 Type 2 diabetes mellitus with ketoacidosis without coma; E88.89 Other specified metabolic disorders; B19.10 Unspecified viral hepatitis B without hepatic coma; E87.1 Hypo-osmolality and hyponatremia; F10.10 Alcohol abuse, uncomplicated; Z86.39 Personal history of other endocrine, nutritional and metabolic disease; F17.210 Nicotine dependence, cigarettes, uncomplicated; Z79.899 Other long term (current) drug therapy; Z79.84 Long term (current) use of oral hypoglycemic drugs; Z91.148 Patient's other noncompliance with medication regimen for other reason; Z90.411 Acquired partial absence of pancreas
CPT/HCPCS: 36415; 36600; 71045; 82803; 83690; 83735; 84100; 84484; 85025; 85730; A4606; A4663; A6213; G0378; J1650; J1815; J1885; J2470; J2765; J3480; J3490; J7040

== ENCOUNTER 2024-11-05 21:50 | Inpatient (IN) | payer OTHER ==
[~2024-11-05] VITALS: Ht 172.7 cm; Wt 63.5 kg
[~2024-11-05 21:50] MED LIST changes: -CHLO25CA22 PO; +ESCI10TA PO; -ESCI5TAB PO; -FLAS1KIT2 TP; +NICO-625 TP; -ONDA4TAB5 PO
[2024-11-06] VITALS (11 sets, daily range): BP systolic 87–106; BP diastolic 62–74; TEMP 97.9–98; O2SAT 96–99
[2024-11-06] MEDS ORDERED: ONDANSETRON 4 MG/2 ML VIAL ONE (00:13)
[2024-11-06] MEDS ORDERED: MORPHINE SULFATE 2 MG/1 ML DISP.SYRIN ONE (00:14)
[2024-11-06] MEDS ORDERED: MORPHINE SULFATE 4 MG/1 ML DISP.SYRIN ONE (00:14)
[2024-11-06] MEDS: MORPHINE SULFATE 2 MG/1 ML DISP.SYRIN IV ONE (00:15)
[2024-11-06] MEDS: ONDANSETRON 4 MG/2 ML VIAL IV ONE (00:15)
[2024-11-06] MEDS: IV NORMAL SALINE 1000 ML BAG IV ONE (00:15)
[2024-11-06 00:29] LABS: BASOPHILS % (AUTO) 0.5 % (0.0-2.0); HEMATOCRIT 51.7 % (36.7-47.1); HEMOGLOBIN 17.4 g/dL (12.5-16.3); LYMPHOCYTES # (AUTO) 1.1 K/uL (0.8-4.8); LYMPHOCYTES % (AUTO) 21.9 % (20.5-51.5); MEAN CORPUSCULAR HEMOGLOBIN 31.7 uug (23.8-33.4); MEAN CORPUSCULAR HGB CONC 34 g/dL (32.5-36.3); MEAN CORPUSCULAR VOLUME 94.6 fL (73.0-96.2); MONOCYTES # (AUTO) 0.3 K/uL (0.1-1.30); NEUTROPHILS # (AUTO) 3.7 K/uL (1.8-8.9); NEUTROPHILS % (AUTO) 72.6 % (38.5-71.5); PLATELET COUNT (AUTO) 196 K/uL (152-348); RED BLOOD CELL COUNT(AUTO) 5.47 MIL/uL (4.06-5.63); WHITE BLOOD COUNT (AUTO) 5.2 K/uL (3.6-10.2)
[2024-11-06 00:34] LABS: DIFFERENTIAL COMMENT 1
[2024-11-06 00:43] LABS: CALCIUM 9.1 mg/dL (8.5-10.1); CREATININE 1.2 mg/dL (0.6-1.3); POTASSIUM 3.1 mmol/L (3.5-5.1)
[2024-11-06 00:49] LABS: ALBUMIN 4.7 g/dL (3.4-5.0); BILIRUBIN,DIRECT 0.2 mg/dL (0.0-0.2); BILIRUBIN,TOTAL 1.1 mg/dL (0.2-1.0); TOTAL PROTEIN, SERUM 8.7 g/dL (6.4-8.2)
[2024-11-06] MEDS ORDERED: POTASSIUM CHLORIDE 20 MEQ TAB.PRT.SR ONE (01:09)
[2024-11-06] MEDS ORDERED: METOCLOPRAMIDE HCL 10 MG/2 ML VIAL ONE (01:09)
[2024-11-06] MEDS ORDERED: IV 0.9% SODIUM CHLORID+ 20 KCL 1,000 ML ONE (01:10)
[2024-11-06] MEDS: METOCLOPRAMIDE HCL 10 MG/2 ML VIAL IV ONE (01:27)
[2024-11-06] MEDS: POTASSIUM CHLORIDE 20 MEQ TAB.PRT.SR PO ONE (01:27)
[2024-11-06] MEDS: IV 0.9% SODIUM CHLORID+ 20 KCL 1,000 ML IV ONE (01:27)
[2024-11-06 02:11] LABS: ABG BASE EXCESS -18.6 mmol/L (-2.0-3.0); ABG HCO3 7.8 mmol/L (21.0-28.0); ABG PCO2 21.6 mmHg (35.0-48.0); ABG PH 7.176 (7.350-7.450); ABG PO2 109.9 mmHg (83.0-108.0); ABG SITE RIGHT RADIAL; ABG TOTAL HEMOGLOBIN 15.1 G/dL (13.5-17.5); AaDO2 96.9 mmHg; COHb 0.2 % (0.5-1.5); MetHb 0.2 % (0.0-1.5); O2Hb 97.1 % (94.0-98.0)
[2024-11-06 02:16] LABS: *BILIRUBIN,URIN NEGATIVE (NEGATIVE); *CLARITY,URINE CLEAR (CLEAR); *COLOR,URINE YELLOW (YELLOW); *KETONES,URINE 4+ (NEGATIVE); *PROTEIN,URINE 2+ (NEGATIVE); *UROBILINOGEN,URINE 0.2 E.U./dl (NORMAL); LEUKOCYTE ESTERASE ,URINE NEGATIVE (NEGATIVE); NITRITE, URINE NEGATIVE (NEGATIVE); PH,URINE 5.5 (5.0-8.0)
[2024-11-06 02:18] LABS: MAGNESIUM 1.9 mg/dL (1.8-2.4)
[2024-11-06 02:25] LABS: *BLOOD, URINE TRACE (NEGATIVE); UGLUCOSE 2+ (NEGATIVE)
[2024-11-06 03:14] LABS: RBC,URINE 0-3 /HPF (0-3); WBC,URINE NONE SEEN /HPF (0-3)
[2024-11-06 03:15] LABS: BACTERIA,URINE NONE SEEN /HPF (NONE SEEN); SQUAMOUS EPITHELIAL CELL,UR FEW /HPF (NONE SEEN)
[2024-11-06] MEDS ORDERED: REMEDY ESSENTIAL ZINC PASTE 113 GM TP PRN (03:30)
[2024-11-06] MEDS ORDERED: IV NS 1000 ML 1,000 ML IV PRN (03:30)
[2024-11-06 04:10] LABS: BASOPHILS % (AUTO) 0.7 % (0.0-2.0); EOSINOPHILS % (AUTO) 0.1 % (0.0-7.0); HEMATOCRIT 44.5 % (36.7-47.1); HEMOGLOBIN 14.8 g/dL (12.5-16.3); LYMPHOCYTES # (AUTO) 1.4 K/uL (0.8-4.8); LYMPHOCYTES % (AUTO) 27.9 % (20.5-51.5); MEAN CORPUSCULAR HEMOGLOBIN 31.6 uug (23.8-33.4); MEAN CORPUSCULAR HGB CONC 33 g/dL (32.5-36.3); MONOCYTES # (AUTO) 0.4 K/uL (0.1-1.30); MONOCYTES % (AUTO) 7.9 % (0.0-11.0); NEUTROPHILS # (AUTO) 3.3 K/uL (1.8-8.9); NEUTROPHILS % (AUTO) 63.4 % (38.5-71.5); PLATELET COUNT (AUTO) 164 K/uL (152-348); RED BLOOD CELL COUNT(AUTO) 4.69 MIL/uL (4.06-5.63); RED CELL DISTRIBUTION WIDTH 13.1 % (12.1-16.2); WHITE BLOOD COUNT (AUTO) 5.2 K/uL (3.6-10.2)
[2024-11-06 04:19] LABS: DIFFERENTIAL COMMENT 1
[2024-11-06 04:26] LABS: CALCIUM 7.8 mg/dL (8.5-10.1); MAGNESIUM 1.8 mg/dL (1.8-2.4); PHOSPHOROUS 2.3 mg/dL (2.5-4.9); POTASSIUM 3.7 mmol/L (3.5-5.1)
[2024-11-06 04:37] LABS: THYROID STIMULATING HORMONE 2.472 mIU/mL (0.358-3.740)
[2024-11-06] MEDS ORDERED: IV NS + KCL 40 MEQ 1000 ML BAG 1,000 ML IV ONE (04:43)
[2024-11-06] MEDS ORDERED: MISCELLANEOUS MED XX ONE (04:45)
[2024-11-06] MEDS ORDERED: IV D5W-0.45% NS +20 KCL 1,000 ML IV ONE (04:49)
[2024-11-06] MEDS ORDERED: INSULIN REGULAR, HUMAN 1000 UNIT/10 ML VIAL ONE (05:12)
[2024-11-06] MEDS: BLOOD SUGAR DIAGNOSTIC 1 EACH STRIP VI SCH ×2 (05:44→16:36)
[2024-11-06] MEDS: INSULIN REGULAR, HUMAN 100 UNITS in IV NORMAL SALINE 100 ML IV SCH (05:44)
[2024-11-06 07:25] LABS: ABG BASE EXCESS -16.8 mmol/L (-2.0-3.0); ABG HCO3 9.5 mmol/L (21.0-28.0); ABG PCO2 25.3 mmHg (35.0-48.0); ABG PH 7.194 (7.350-7.450); ABG PO2 103.5 mmHg (83.0-108.0); ABG SITE RIGHT RADIAL; AaDO2 96.6 mmHg; COHb 0.7 % (0.5-1.5); MetHb 0.1 % (0.0-1.5); O2Hb 96.5 % (94.0-98.0)
[2024-11-06] MEDS: IV D5/ 0.9% NACL 1,000 ML IV PRN (08:17)
[2024-11-06 08:48] LABS: CREATININE 0.9 mg/dL (0.6-1.3); MAGNESIUM 1.9 mg/dL (1.8-2.4); PHOSPHOROUS 1.5 mg/dL (2.5-4.9); POTASSIUM 4.2 mmol/L (3.5-5.1)
[2024-11-06] MEDS: PANTOPRAZOLE SODIUM 40 MG VIAL IV SCH (09:14)
[2024-11-06] MEDS: ONDANSETRON 4 MG/2 ML VIAL IV PRN (09:14)
[2024-11-06] MEDS: MAGNESIUM SULFATE/D5W 100 ML IV SCH (10:20)
[2024-11-06] MEDS: MORPHINE SULFATE 2 MG/1 ML DISP.SYRIN IV PRN (11:22)
[2024-11-06] MEDS ORDERED: ERTU15TA PO (14:08)
[2024-11-06] MEDS ORDERED: DEXTROSE 50% 50 ML DISP.SYRIN IV PRN (14:30)
[2024-11-06] MEDS: INSULIN REGULAR, HUMAN 1000 UNIT/10 ML VIAL SQ PRN (16:38)
[2024-11-06] MEDS: NEUTRA PHOS PACKET PO ONE (17:13)
[2024-11-07] VITALS: BP 104/65; TEMP 98.1; O2SAT 100
[2024-11-07 04:00] VITALS: BP 104/66; TEMP 97.8; O2SAT 98
[2024-11-07 07:27] VITALS: BP 98/64; TEMP 97.6; O2SAT 100
[2024-11-07] MEDS: METFORMIN HCL 500 MG TABLET PO SCH (08:22)
[2024-11-07] MEDS: ESCITALOPRAM OXALATE 10 MG TABLET PO SCH (08:23)
[2024-11-07] MEDS ORDERED: ERTUGLIFLOZIN PIDOLATE 15 MG PO SCH (09:00)
[2024-11-07 10:56] VITALS: BP 112/72; TEMP 98.2; O2SAT 100
[2024-11-07] MEDS ORDERED: GLIP5TAB13 PO (14:59)
[2024-11-07] MEDS ORDERED: PANT40TA49 PO (14:59)
[2024-11-07 15:03] VITALS: BP 100/59; TEMP 98.3; O2SAT 99
[2024-11-07] MEDS: glipiZIDE 5 MG TABLET PO SCH (16:26)
[2024-11-08] MEDS ORDERED: PANTOPRAZOLE SODIUM 40 MG TABLET.DR PO SCH (07:00)
== END 2024-11-07 17:30 | disposition home or self-care (01) | DRG 420 ==
LOC: ER 21:50 → CCU 11-06 07:52 → TELE3 11-06 21:55
PROVIDERS: ADMIT Nurse Practitioner Family; ATTEND Nurse Practitioner Family
DX: E11.10 Type 2 diabetes mellitus with ketoacidosis without coma (principal); N17.0 Acute kidney failure with tubular necrosis; K29.00 Acute gastritis without bleeding; E86.0 Dehydration; E87.6 Hypokalemia; F10.11 Alcohol abuse, in remission; F17.210 Nicotine dependence, cigarettes, uncomplicated; Z86.19 Personal history of other infectious and parasitic diseases; R11.2 Nausea with vomiting, unspecified; F41.9 Anxiety disorder, unspecified; E87.1 Hypo-osmolality and hyponatremia; E83.39 Other disorders of phosphorus metabolism; N40.0 Benign prostatic hyperplasia without lower urinary tract symptoms; E11.65 Type 2 diabetes mellitus with hyperglycemia; Z79.84 Long term (current) use of oral hypoglycemic drugs; Z79.899 Other long term (current) drug therapy; Z90.411 Acquired partial absence of pancreas
CPT/HCPCS: 36415; 36600; 71045; 83690; 83735; 84100; 84443; 85025; 93005; A4606; A4663; G0378; J1815; J2270; J2405; J2470; J2765; J3475; J7040; J7042

== ENCOUNTER 2025-02-23 23:33 | Inpatient (IN) | payer OTHER ==
[~2025-02-23] VITALS: Ht 172.7 cm; Wt 63.5 kg
[~2025-02-23 23:33] MED LIST changes: +GLIP5TAB13 PO; -NICO-625 TP; +PANT40TA49 PO
[2025-02-24] VITALS (10 sets, daily range): BP systolic 81–104; BP diastolic 53–71; TEMP 97.6–99.2; O2SAT 96–100
[2025-02-24] MEDS ORDERED: ONDANSETRON 4 MG/2 ML VIAL ONE ×2 (00:36→06:34)
[2025-02-24] MEDS: IV NORMAL SALINE 1000 ML BAG IV ONE (00:42)
[2025-02-24 00:43] LABS: BASOPHILS % (AUTO) 0.3 % (0.0-2.0); HEMATOCRIT 47.6 % (36.7-47.1); HEMOGLOBIN 15.8 g/dL (12.5-16.3); LYMPHOCYTES # (AUTO) 1.4 K/uL (0.8-4.8); MEAN CORPUSCULAR HEMOGLOBIN 31.3 uug (23.8-33.4); MEAN CORPUSCULAR HGB CONC 33 g/dL (32.5-36.3); MEAN CORPUSCULAR VOLUME 94.2 fL (73.0-96.2); MONOCYTES # (AUTO) 0.7 K/uL (0.1-1.30); MONOCYTES % (AUTO) 7.1 % (0.0-11.0); NEUTROPHILS % (AUTO) 78.6 % (38.5-71.5); PLATELET COUNT (AUTO) 223 K/uL (152-348); RED BLOOD CELL COUNT(AUTO) 5.05 MIL/uL (4.06-5.63); RED CELL DISTRIBUTION WIDTH 15.1 % (12.1-16.2); WHITE BLOOD COUNT (AUTO) 10.2 K/uL (3.6-10.2)
[2025-02-24] MEDS: ONDANSETRON 4 MG/2 ML VIAL IV ONE (00:43)
[2025-02-24 00:44] LABS: DIFFERENTIAL COMMENT 1
[2025-02-24 01:00] LABS: CALCIUM 9.2 mg/dL (8.5-10.1); CREATININE 1.2 mg/dL (0.6-1.3); POTASSIUM 3.9 mmol/L (3.5-5.1)
[2025-02-24 01:05] LABS: ALBUMIN 4.8 g/dL (3.4-5.0); BILIRUBIN,DIRECT 0.3 mg/dL (0.0-0.2); BILIRUBIN,TOTAL 2.1 mg/dL (0.2-1.0); TOTAL PROTEIN, SERUM 8.7 g/dL (6.4-8.2)
[2025-02-24 01:10] LABS: VBG AaDO2 50.2 mmHg; VBG BASE EXCESS -14.2 mmol/L (-2.0-3.0); VBG HCO3 12.9 mmol/L (22.0-29.0); VBG MetHb 0.3 % (0.5-1.5); VBG O2HB 53.1 % (0-79.0); VBG PCO2 34.6 mmHg (38.0-54.0); VBG PO2 < 40.5 mmHg (23.0-48.0); VBG TOTAL HEMOGLOBIN 14.4 G/dL (13.5-17.5)
[2025-02-24] MEDS ORDERED: MORPHINE SULFATE 2 MG/1 ML DISP.SYRIN IVP PRN (02:30)
[2025-02-24] MEDS ORDERED: hydrALAZINE HCL 20 MG/1 ML VIAL IV PRN (02:30)
[2025-02-24] MEDS ORDERED: ACETAMINOPHEN 325 MG TABLET PO PRN (02:30)
[2025-02-24] MEDS ORDERED: ONDANSETRON 4 MG/2 ML VIAL IV PRN (02:30)
[2025-02-24] MEDS ORDERED: INSULIN REGULAR, HUMAN 1000 UNIT/10 ML VIAL ONE (02:51)
[2025-02-24] MEDS: IV D5 1/2 NS 1000 ML 1,000 ML IV SCH (03:18)
[2025-02-24] MEDS: INSULIN REGULAR, HUMAN 100 UNIT in IV NORMAL SALINE 100 ML IV PRN (03:19)
[2025-02-24 03:23] LABS: CALCIUM 8.3 mg/dL (8.5-10.1); CREATININE 0.9 mg/dL (0.6-1.3); POTASSIUM 3.9 mmol/L (3.5-5.1)
[2025-02-24 03:29] LABS: *BILIRUBIN,URIN NEGATIVE (NEGATIVE); *BLOOD, URINE NEGATIVE (NEGATIVE); *CLARITY,URINE CLEAR (CLEAR); *COLOR,URINE YELLOW (YELLOW); *KETONES,URINE 4+ (NEGATIVE); *PROTEIN,URINE 1+ (NEGATIVE); *UROBILINOGEN,URINE 0.2 E.U./dl (NORMAL); LEUKOCYTE ESTERASE ,URINE NEGATIVE (NEGATIVE); NITRITE, URINE NEGATIVE (NEGATIVE)
[2025-02-24 03:35] LABS: UGLUCOSE 2+ (NEGATIVE)
[2025-02-24 03:41] LABS: RBC,URINE 0-3 /HPF (0-3); WBC,URINE NONE SEEN /HPF (0-3)
[2025-02-24 03:42] LABS: BACTERIA,URINE FEW /HPF (NONE SEEN); SQUAMOUS EPITHELIAL CELL,UR FEW /HPF (NONE SEEN)
[2025-02-24] MEDS: IV NS 1000 ML 1,000 ML IV ONE ×3 (05:14→10:14)
[2025-02-24] MEDS ORDERED: POTASSIUM CHLORIDE 200 ML ONE (05:17)
[2025-02-24] MEDS: POTASSIUM CHLORIDE 50 ML IV SCH (05:33)
[2025-02-24] MEDS ORDERED: MORPHINE SULFATE 4 MG/1 ML DISP.SYRIN ONE (06:34)
[2025-02-24 07:14] LABS: CALCIUM 7.4 mg/dL (8.5-10.1); CREATININE 0.9 mg/dL (0.6-1.3); POTASSIUM 3.8 mmol/L (3.5-5.1)
[2025-02-24] MEDS: IV D5/ 0.9% NACL 1,000 ML IV PRN (08:44)
[2025-02-24] MEDS ORDERED: HEPARIN SODIUM,PORCINE 5,000 UNITS/ML VIAL ONE (09:17)
[2025-02-24] MEDS: HEPARIN SODIUM,PORCINE 5,000 UNITS/ML VIAL SQ SCH (09:22)
[2025-02-24 11:25] LABS: CALCIUM 7.6 mg/dL (8.5-10.1); CREATININE 0.9 mg/dL (0.6-1.3); POTASSIUM 3.9 mmol/L (3.5-5.1)
[2025-02-24] MEDS ORDERED: METF-495 PO (13:01)
[2025-02-24] MEDS ORDERED: GLIP5TAB13 PO (13:01)
[2025-02-24] MEDS: EMPAGLIFLOZIN 10 MG TABLET PO SCH (14:07)
[2025-02-24 16:01] LABS: CALCIUM 7.7 mg/dL (8.5-10.1); CREATININE 0.9 mg/dL (0.6-1.3); POTASSIUM 3.8 mmol/L (3.5-5.1)
[2025-02-24] MEDS: glipiZIDE 5 MG TABLET PO SCH (16:40)
[2025-02-24] MEDS ORDERED: DEXTROSE 50% 50 ML DISP.SYRIN IV PRN (16:45)
[2025-02-24] MEDS ORDERED: METFORMIN HCL 850 MG TABLET PO SCH (17:00)
[2025-02-24] MEDS: METFORMIN HCL 500 MG TABLET PO SCH (17:19)
[2025-02-24 20:53] LABS: CALCIUM 8.1 mg/dL (8.5-10.1); CREATININE 0.7 mg/dL (0.6-1.3); POTASSIUM 3.4 mmol/L (3.5-5.1)
[2025-02-24] MEDS: INSULIN REGULAR, HUMAN 300 UNITS/3 ML VIAL SQ PRN (20:53)
[2025-02-24] MEDS: BLOOD SUGAR DIAGNOSTIC 1 EACH STRIP VI SCH (20:54)
[2025-02-24 23:05] LABS: CREATININE 0.9 mg/dL (0.6-1.3)
[2025-02-25] VITALS: BP 100/63; TEMP 98.8; O2SAT 97
[2025-02-25] MEDS: TRAZODONE 50 MG TABLET PO PRN (00:11)
[2025-02-25 06:00] VITALS: BP 104/71; TEMP 97.8; O2SAT 100
[2025-02-25 06:33] LABS: BASOPHILS % (AUTO) 0.3 % (0.0-2.0); EOSINOPHILS % (AUTO) 0.6 % (0.0-7.0); HEMATOCRIT 39.3 % (36.7-47.1); HEMOGLOBIN 13.2 g/dL (12.5-16.3); LYMPHOCYTES # (AUTO) 1.2 K/uL (0.8-4.8); LYMPHOCYTES % (AUTO) 35.8 % (20.5-51.5); MEAN CORPUSCULAR HEMOGLOBIN 31.5 uug (23.8-33.4); MEAN CORPUSCULAR HGB CONC 34 g/dL (32.5-36.3); MEAN CORPUSCULAR VOLUME 93.6 fL (73.0-96.2); MONOCYTES # (AUTO) 0.3 K/uL (0.1-1.30); MONOCYTES % (AUTO) 9.5 % (0.0-11.0); NEUTROPHILS # (AUTO) 1.8 K/uL (1.8-8.9); NEUTROPHILS % (AUTO) 53.8 % (38.5-71.5); PLATELET COUNT (AUTO) 127 K/uL (152-348); RED BLOOD CELL COUNT(AUTO) 4.19 MIL/uL (4.06-5.63); RED CELL DISTRIBUTION WIDTH 14.9 % (12.1-16.2); WHITE BLOOD COUNT (AUTO) 3.4 K/uL (3.6-10.2)
[2025-02-25 06:48] LABS: ALBUMIN 3.3 g/dL (3.4-5.0); CALCIUM 8.4 mg/dL (8.5-10.1); CREATININE 0.7 mg/dL (0.6-1.3); PHOSPHOROUS 2.2 mg/dL (2.5-4.9); POTASSIUM 3.3 mmol/L (3.5-5.1); TOTAL PROTEIN, SERUM 5.8 g/dL (6.4-8.2)
[2025-02-25 06:52] LABS: DIFFERENTIAL COMMENT 1
[2025-02-25 07:38] VITALS: BP 108/71; TEMP 98.1; O2SAT 100
[2025-02-25] MEDS: INSULIN REGULAR, HUMAN 1000 UNIT/10 ML VIAL SQ PRN (07:51)
[2025-02-25] MEDS: POTASSIUM CHLORIDE 20 MEQ TAB.PRT.SR PO ONE (11:23)
[2025-02-25] MEDS: ESCITALOPRAM OXALATE 10 MG TABLET PO SCH (11:23)
[2025-02-25 11:38] VITALS: BP 111/69; TEMP 98; O2SAT 99
[2025-02-25 15:56] VITALS: BP 123/83; TEMP 98.9; O2SAT 99
[2025-02-25] MEDS: NEUTRA PHOS PACKET PO ONE (16:41)
== END 2025-02-25 17:15 | disposition home or self-care (01) | DRG 420 ==
LOC: ER 23:47 → ICU IN 02-24 08:15 → CCU 02-24 10:17 → TELE3 02-24 15:54
PROVIDERS: ADMIT Internal Medicine; ATTEND Internal Medicine
DX: E11.10 Type 2 diabetes mellitus with ketoacidosis without coma (principal); N17.0 Acute kidney failure with tubular necrosis; B19.10 Unspecified viral hepatitis B without hepatic coma; S06.0XAA Concussion with loss of consciousness status unknown, initial encounter; K86.89 Other specified diseases of pancreas; E83.39 Other disorders of phosphorus metabolism; E86.0 Dehydration; S30.0XXA Contusion of lower back and pelvis, initial encounter; S16.1XXA Strain of muscle, fascia and tendon at neck level, initial encounter; Y04.0XXA Assault by unarmed brawl or fight, initial encounter; Y92.89 Other specified places as the place of occurrence of the external cause; E87.1 Hypo-osmolality and hyponatremia; R40.2362 Coma scale, best motor response, obeys commands, at arrival to emergency department; R40.2142 Coma scale, eyes open, spontaneous, at arrival to emergency department; R40.2252 Coma scale, best verbal response, oriented, at arrival to emergency department; Z79.84 Long term (current) use of oral hypoglycemic drugs; Z79.899 Other long term (current) drug therapy; N40.0 Benign prostatic hyperplasia without lower urinary tract symptoms; Z90.411 Acquired partial absence of pancreas; E87.6 Hypokalemia; F32.A Depression, unspecified; F41.9 Anxiety disorder, unspecified; F10.10 Alcohol abuse, uncomplicated; K40.90 Unilateral inguinal hernia, without obstruction or gangrene, not specified as recurrent; F17.210 Nicotine dependence, cigarettes, uncomplicated
CPT/HCPCS: 36415; 36600; 70450; 72192; 82803; 83690; 84100; 85025; 86850; 86900; 86901; 86920; G0378; J1644; J1815; J2270; J2405; J3480; J7040; J7042